=== PATIENT | male | born 1955 | race Caucasian/White ===

== ENCOUNTER 2016-05-23 07:04 | Inpatient (IN) | payer OTHER, MEDICARE ==
[~2016-05-23] VITALS: Ht 185.4 cm; Wt 94.5 kg
[~2016-05-23 07:04] MED LIST: CHOL100043 PO; HYOS0.1218 SL; LIT450 PO; LORA-303 PO; LORA1TAB PO; OMEG1CAP2 PO; PANT40TA2 PO; Therapeutic Multivit/Minerals PO
[2016-05-23 07:10] VITALS: BP 190/116; PULSE 90; RESP 18; O2SAT 98
[2016-05-23 08:50] LABS: BASOPHILS % (AUTO) 0.1 % (0-3); EOSINOPHILS % (AUTO) 0.3 % (0-5); MONOCYTES % (AUTO) 6.9 % (4-12); Mean Corpuscular Hemoglobin 30.8 pg (27.0-35.0); Mean Corpuscular Volume 86.5 fL (81-100); NEUTROPHILS % (AUTO) 72.9 % (40-74); Platelet Count 187 bil/L (150-400)
[2016-05-23 09:48] VITALS: BP 174/97; PULSE 79; RESP 16; O2SAT 97
--- NOTE | 2016-05-23 11:39 | ED.REPORT ---
HPI-Psychiatric Illness Date of Service May 23, 2016 ED Provider: Brenda Coles MD 60yoM with PMH remarkable for Bipolar Disorder type 1 presents with two weeks of decreasing sleep secondary to Harvoni started by Dr. Quintero on April 27, 2016. The patient states that he has not been feeling well, and his general mental health seems to be declining due to lack of sleep. The patient also states that he has run out of his [place] and his psychiatrist Brennen Rainey M.D. would not restart this medication without evaluating the patient first. The patient has been on several medications for his bipolar condition including Risperidone started during a hospitalization in May 2015 at [facility], as well as Quietipine and lorazepam. The patient states that he has thoughts of harming himself with several modalities including cutting his wrists which he says were not serious as well as medication overdose which he states he has contemplated more seriously. He denies visual or auditory hallucinations. He denies wanting to hurt other people. He has a stressor at home with his son actively using heroin but reportedly being treated for his addiction as well. Nursing Notes Stated Complaint: SUICIDAL IDEATIONS/ABDOMINAL PAIN/HEADACHE Chief Complaint: Psychiatric Complaint Allergies: Coded Allergies: No Known Allergies (Unverified , 12/12/15) Scheduled ([Therapeutic Multivit/Minerals]) 1 TABLET TABLET 1 TABLET PO DAILY Cholecalciferol (Vitamin D3) (Vitamin D) 1,000 Unit Tablet 1,000 UNIT PO DAILY Ledipasvir/Sofosbuvir (Harvoni 90-400 mg Tablet) 1 Each Tablet 1 EACH PO DAILY [place] Carbonate ([place] Carbonate XR) 450 Mg Tablet.er 900 MG PO DAILY [place]-3 Acid Ethyl Esters (Lovaza) 1 Gm Capsule 1 GM PO DAILY Pantoprazole DR (Protonix) 40 Mg Tablet 40 MG PO DAILY Scheduled PRN Hyoscyamine SL (Hyoscyamine SL) 0.125 Mg Subl 0.125 MG SL Q4H PRN PRN For Moderate Pain Lorazepam (Ativan) 1 Mg Tablet 1 MG PO Q6 PRN PRN mod-severe anxiety/agitation Lorazepam (Lorazepam) 1 Mg Tablet 3 MG PO HS PRN PRN For Insomnia General Time Seen by MD: 07:45 Chief Complaint Suicidal ideation, Other (insomnia with risk of landon/hypomania) Hx Obtained From: Patient, Spouse Arrived By: Walk-in Onset Occurred: More than a week ago... (3 weeks) Context of Onset: Problem with child, Other (initiation of new medication Harvoni) Symptom Duration: Since onset Progression Since Onset: Gradually worsening Location: : Abdomen: Head: Neck Quality: Dull Radiation: Does not radiate Severity: Current: Mild Immunizations: Unknown Recent Healthcare: No recent doctor visit, No recent hospitalization Similar Sx Previous: Yes Risk-Psychiatric Illness Suicide Risk Stratification Suicide Risk Factors - Adult: : Prior psych admission: Substance abuse ( history of EtOH) RF Statements: Risk factors reviewed Past Medical History Past Medical History Notes: Last admit was for mild lithium toxicity in November 06 Past Medical History Bipolar, most recent care center admit 05/2015 h/o prior lithum OD h/o chronic abdominal pain (last ED w/u including neg Abd CT in 2012) GERD Negative Nuclear Cardiac Stress Test 2011 Past Surgical History Cataract Surgery Smoking History Current Every Day Smoker Social History Alcohol Use: "Social" Drug Use: THC Other Social History: Ambulatory Status Independent Review of Systems GI: Reports: Abdominal pain, Constipation, Nausea, Denies: Diarrhea, Vomiting Psychiatric: Reports: Depression, Insomnia, Suicidal ideation, Denies: Delusional, Hallucinations, auditory, Hallucinations, visual, Homicidal ideation Complete sys rev & neg: except as marked. Physical Exam Initial Vital Signs Vital Signs (First) Date Time Temp Pulse Resp B/P Pulse Ox O2 Delivery O2 Flow Rate FiO2 05/23/16 07:10 36.8 90 18 190/116 98 05/23/16 09:48 Room Air Initial VS: Reviewed Head / Eyes: Atraumatic, Normocephalic, PERRL ENT: Mucous membranes moist, Conjunctiva normal Neck: Supple, Non-tender, Full range of motion Respiratory: Breath sounds normal, Clear to auscultation, No respiratory distress Cardiovascular: Regular rate & rhythm, Heart sounds normal, Intact distal pulses Abdomen / GI: Soft, Non-tender, No guarding, No rebound, No distention Back: No CVA tenderness Lymphatic: No lymphadenopathy Extremities: Vascular intact, Neuro intact, No swelling, No tenderness Skin: Warm, Dry, No cyanosis Psychiatric: No hallucinations, Thought content NL Abnormal Mood/Affect: Positive: Anxious, Depressed, Pressured speech (very mild ), Negative: Labile Abnormal Thinking / Perception: Positive: Insight abnormal (believes his only issue to lack of sleep and not landon/hypomania), Suicidal, with plan (patient stated he has thought about overdosing on medication), Negative: Delusions - paranoid, Flight of ideas, Hallucinations, auditory, Hallucinations, tactile, Hallucinations, visual, Homicidal, no plan Mild scleral icterus noted, however without sublingual juandice noted ENT: Airway patent, Mucous membranes moist, Pharynx NL, No facial swelling Dental / Gums: Positive: Dentition poor (bottom and top dentures) Interpretation & Diagnostics Lab Results Interpretation Result Diagram: 05/23/16 0837 05/23/16 0837 Test 05/23/16 08:20 05/23/16 08:37 Hold Urine Received (Received) White Blood Count 8.8th/mm3 (3.8-10.1) Red Blood Count 5.39mil/mm3 (4.40-5.80) Hemoglobin 16.6g/dL (13.8-17.2) Hematocrit 46.6% (41.0-50.0) Mean Corpuscular Volume 86.5fL (81-100) Mean Corpuscular Hemoglobin 30.8pg (27.0-35.0) Mean Corpuscular Hemoglobin Concent 35.6% (32.0-37.0) Red Cell Distribution Width 12.7% (12.3-15.4) Platelet Count 187bil/L (150-400) Neutrophils (%) (Auto) 72.9% (40-74) Lymphocytes (%) (Auto) 19.5% (14-46) Monocytes (%) (Auto) 6.9% (4-12) Eosinophils (%) (Auto) 0.3% (0-5) Basophils (%) (Auto) 0.1% (0-3) Sodium Level 139mEq/L (134-144) Potassium Level 3.7mEq/L (3.5-5.2) Chloride Level 101mEq/L (97-108) Carbon Dioxide Level 24mmol/L (18-29) Blood Urea Nitrogen 9mg/dL (6-24) Creatinine 0.76mg/dL (0.76-1.27) Estimat Glomerular Filtration Rate 112mL/min (>59) Glucose Level 132mg/dL (60-99) Calcium Level 9.6mg/dL (8.5-10.1) Magnesium Level 2.0mg/dL (1.6-2.6) Total Bilirubin 0.4mg/dL (0.0-1.2) Aspartate Amino Transf (AST/SGOT) 22U/L (0-50) Alanine Aminotransferase (ALT/SGPT) 23U/L (0-44) Alkaline Phosphatase 71U/L (25-160) Total Protein 8.3g/dL (6.4-8.4) Albumin 4.6g/dL (3.4-5.0) Lipase 35U/L (13-60) Hold [place] Top Tube Received (Received) Re-Eval/Medical Decision Med Decision/Clinical Course Patient would like to be considered for voluntary hospitalization into the Mental Health wing of [facility]. Social Work has been consulted. Source of Hx: Old records, Family Re-Evaluation/Progress : Time of Eval: 12:20 Re-Evaluation/Progress Note: Consult with Dr. Flores (Mental Health). Case discussed and accepts admission. Counseled Regarding: Diagnosis, Lab results, Need for admission Discharge & Departure Impression: Primary Impression: Bipolar disorder, current episode hypomanic Additional Impressions: Insomnia Insomnia type: unspecified Qualified Code: G47.00 - Insomnia, unspecified Hepatitis C Disposition: ADMITTED TO HOSPITAL Discharge Condition All VS Reviewed: Yes Condition: Stable Referrals: Deanna Galdamez DO (PCP) Anay Attestation Portion of this note were transcribed by Rosa M Garcia. I, Dr. Coles, personally performed the history, physical exam, and medical decision-making: I reviewed and confirmed the accuracy for the information in the transcribed note. Signed by: anay Novak, 05/23/16 1300 Attending Statement Patient seen and evaluated. Hypomania/landon with improvement weeks of starting harvoni treatment for hepatitis C Willing to try meds but wants to make sure they are going to work. Requests inpt voluntary eval for acute medication adjustment in light of newly started Harvoni. discussed with Dr Flores. Admit to care center. copies to: Deanna Galdamez NICHOLAS K DO May 23, 2016 09:20 ROSA M GARCIA May 23, 2016 12:24 Brenda Coles MD May 23, 2016 13:24
[2016-05-23] MEDS ORDERED: Benzocaine-Menthol Lozenge 2/Pkg MT PRN (13:20)
[2016-05-23] MEDS ORDERED: Magnesium Hydroxide 10 mL Oral Concentration PO PRN (13:20)
[2016-05-23] MEDS ORDERED: Alum-Mag Hydrox-Simeth 30 mL Suspension PO PRN (13:20)
[2016-05-23 13:49] VITALS: BP 174/97; PULSE 79; RESP 16; O2SAT 97
[2016-05-23] MEDS ORDERED: LORazepam 1 mg Tablet PO PRN (16:25)
--- NOTE | 2016-05-23 18:01 | NUR ---
[facility] Day Shift Pt admitted to the unit at approx 13:33. Pt completed the admission process without incident. Pt affect appears euthymic, somewhat manic/restless throughout the shift. Pt spends most of the shift resting in his room or obtaining snacks/meals from the dining room. Pt is appropriate with staff and peers when active on the unit, but is not overly social. Pt has not attended group activities throughout the shift. Pt attended dinner and ate approx 100% of meal.
[2016-05-23 18:08] VITALS: BP 117/84; PULSE 106; RESP 16
--- NOTE | 2016-05-23 18:21 | NUR ---
Admitting Note Pt is a 60 y/o White male with a history of bipolar disorder, brought to the ED due to insomnia x 3 days. Pt is Hep C positive and began taking the drug Harvoni which he believes is the cause of his insomnia. He reports passive and fleeting SI. He attributes this to his deteriorating health, overwhelming concern about side effects of this medication and complicated by lack of sleep. Pt denies current SI plan or intent, denies A/V H, no sign of psychosis or landon observed. Pt reported he has been off his lithium x 1 week after running out and being unable to get the prescription refilled. Pt has been sober from alcohol since 03/29/16 and denies substance use. Pt oriented to unit, provided a meal and is resting comfortably. Home medication Darleneoni sent to pharmacy for verification before being used as a pt home med on the unit.
[2016-05-23] MEDS ORDERED: LEDI1TAB PO (18:52)
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
--- NOTE | 2016-05-24 01:09 | NUR ---
Nursing Note [id number] Pt isolating to room most of shift. Pt denied anxiety, depression and SI stating "I am here cause I haven't slept in 3 weeks from the Harvoni. Pt also c/o constant stomach pain from the Harvoni. Pt was compliant with with meds and requested ativan and ambien for sleep. Pt given 1st 5mg of ambien which was not affective and second 5mg was administered. pt was cooperative and polite and appears to be manic AEB rapid speech. Q15 min safety checks per protocol, [facility] sleep, safety, behavior.
[2016-05-24] MEDS: Pantoprazole 40 mg ER24 Tablet PO SCH (08:14)
[2016-05-24] MEDS: Omega-3 Fatty Acids 1,000 mg Capsule PO SCH (08:14)
[2016-05-24] MEDS: HARVONI PO SCH (08:15)
[2016-05-24 09:00] VITALS: BP 120/80; PULSE 93; RESP 16
--- NOTE | 2016-05-24 17:30 | NUR ---
Nursing Note Alexei Romero Nursing Notes S: I wanted to leave but I am going to be stuck with the bill if I do. O: Pt wanted to leave AMA today, after talking to patient and after his talked to him, he decided to stay until tomorrow so he wont have to pay the thousands of dollars for a hospital bill. Patient has been participating with group. Pt is very active with staff and patients. A: Pt appears well kept today, flat affect. P: Monitor for safety and response to treatment. Follow plan of care. for safety/response to treatment. Follow PRNs Used Nicorette lozenges PRN X1 today with good effect
--- NOTE | 2016-05-24 19:54 | NUR ---
Observations 0900 to 2130 Pt affect and mood was labile, flat, bright when engaged and content. Pt speech and eye contact was good. Pt declined to attended group and unit activities. Pt sat in TV area and read his book. Pt was social with staff and peers when approached. Pt attended meals in D.R. and ate about 100% of breakfast, 100% of lunch and 100% of dinner. Pt maintained behavior for the shift. Pt was polite, pleasant and cooperative. Pt made several phone calls. Pt was observed every 15 minutes throughout the shift as ordered.
--- NOTE | 2016-05-24 20:38 | PCM.PNPSY ---
Subjective Date of Service May 24, 2016 Subjective Patient initially requesting discharge reporting that he had "played a trick" and was not suicidal, but wanted medication. The patient was rapid and pressured and difficult to interrupt. This was explained to the patient and for that reason would be an AMA discharge with follow-up with outpatient provider. Patient spoke with his who had him agree to stay in the hospital until more stable. No side effects, reports that he is tolerating restart of medication. Sleep: 8 hours Appetite: "okay" Suicidal and homicidal ideation: denies Auditory hallucinations: denies Visual hallucinations: denies Other Psychotic Symptoms: rapid, pressured speech Anxiety: occasional panic attack Depression: 0/10 Current Medications Current Medications Hydroxyzine Pamoate 50 mg Q4 PRN PO Last administered on 05/24/16 15:11; Admin Dose 50 MG; Start 05/24/16 at 09:15 [place] Carbonate 600 mg HS ONCE PO Last administered on 05/23/16 21:08; Admin Dose 600 MG; Start 05/23/16 at 21:00; Stop 05/23/16 at 21:01; Status DC [place] Carbonate 900 mg DAILY PO Last administered on 05/23/16 10:13; Admin Dose 900 MG; Start 05/23/16 at 09:25; Stop 05/23/16 at 16:23; Status DC Lorazepam 1 mg Q4H PRN PO Last administered on 05/24/16 00:20; Admin Dose 1 MG ; Start 05/23/16 at 16:25; Stop 05/24/16 at 09:15; Status DC Multivitamins/ Minerals Therapeutic 1 tablet DAILY PO Last administered on 08:14; Admin Dose 1 TABLET; Start 05/24/16 at 08:30 Nicotine 1 patch DAILY TOPICAL Last administered on 05/24/16 14:36; Admin Dose 1 PATCH; Start 05/24/16 at 13:12 Nicotine Polacrilex 2 mg Q4H PRN BUCCAL Last administered on 05/24/16 14:36; Admin Dose 2 MG; Start 05/24/16 at 13:15 Olanzapine 10 mg DAILY PO Last administered on 05/23/16 10:11; Admin Dose 10 MG ; Start 05/23/16 at 09:25; Stop 05/23/16 at 16:23; Status DC Pantoprazole 40 mg 0630 PO Last administered on 05/24/16 08:14; Admin Dose 40 MG ; Start 05/24/16 at 06:30 Patient Own Medication 1 ea DAILY PO Last administered on 05/24/16 08:15; Admin Dose 1 EA; Start 05/24/16 at 08:30 Zolpidem Tartrate Start with 5 mg and may rep... HS PRN PO Last administered on 05/24/16 00:20; Admin Dose 5 MG; Start 05/23/16 at 16:25 Mental Status Exam Appearance: Neat/well groomed Attitude: Pleasant, Cooperative Behavior: Overtly anxious (mild) Affect: Well Modulated/Appropriate Mood: Euphoric Thought Process/Associations: Logical/Sequential Speech Production: Abundant Speech Rate: Pressured Speech Articulation: Normal Thought Content: Perseveration Danger to Self/Suicidal Ideati: None Danger to Others: None Hallucinations: Auditory (Denies), Visual (Denies) Consciousness: Alert Orientation: Person, Place, Date, Situation Memory: Grossly Intact Estimate Intellectual Function: Average Basis for IQ estimate: Awareness current events, Word use/vocabulary, Educational history, Employment history Attention/Concentration & Cogn: Impaired Insight: Limited Judgement: Limited Result Diagram: 05/23/1683605/23/16836 Mental Health Plan The patient is a 60-year-old male with a long history of bipolar disorder who recently stopped taking lithium as he had not followed up with his outpatient provider and the prescription had . The patient is also experiencing insomnia and worsening mood exacerbated by the recent start of his hepatitis C medication, Harvoni. After discussion with his outpatient provider, he will be restarted on Eskalith 900 mg at bedtime. He will be provided hydroxyzine for anxiety and if this does not relieve anxiety he may be given lorazepam. He will be prescribed olanzapine for mood at bedtime and is he does not sleep well and have zolpidem for insomnia. The patient is somewhat rapid and pressured, consistent with hypomania. Poor insight, initially requesting to leave but agreed to stay, unclear whether he will stay long enough to stabilize. [place] AXIS I: Bipolar disorder hypomanic without psychotic features Alcohol dependence, in partial remission in a controlled environment AXIS II: Deferred AXIS III: See past medical history AXIS IV: Moderate to severe with unemployment and family stressors. AXIS V: GAF= 35 Medications Eskalith 900 mg by mouth nightly Olanzapine 5 mg by mouth nightly Hydroxyzine 50 mg by mouth every 4 hours when necessary anxiety Lorazepam 1 mg by mouth every 4 hours when necessary anxiety if the hydroxyzine not effective Zolpidem 5-10 mg by mouth nightly when necessary insomnia Treatments 1. The patient is admitted to the inpatient unit and will be provided a safe and secure environment. 2. The patient is denying current active suicidality and is not in need of a one-to-one at this time. He is agreeing to notify us should he have any acute suicidal or homicidal thoughts. 3. The patient is encouraged to participate with group and milieu activities. 4. The patient will be seen by the treatment team on a daily basis to assess symptoms, side effects and response to treatment. 5. The patient will be restarted on lithium and switched to Eskalith 900 mg at bedtime. 6. The patient will be started on olanzapine 5 mg at bedtime for bipolar. 7. Hydroxyzine 50 mg by mouth every 4 hours when necessary anxiety with lorazepam back up. 8. We will avoid using acetaminophen or ibuprofen given his hepatic and lithium respectively. 9. We will use hyoscyamine for pain. 10. Anticipated length of stay 3-5 days. Eric Flores MD May 24, 2016 20:38
--- NOTE | 2016-05-24 21:26 | NUR ---
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
--- NOTE | 2016-05-25 04:48 | NUR ---
Observations from [id number] Pt spent the evening watching tv with peers. Pt is pleasant with staff when making a request and seems to be appropriate with peers. Pt appeared asleep at 2145 and has appeared to remain asleep throughout the night. Pt has been monitored every 15 minutes as directed. Addendum: 05/25/16 at 0451 by [facility] Pt woke up briefly at 0500
--- NOTE | 2016-05-25 05:18 | NUR ---
nursing, nights, 11-7 s/o- has appeared to sleep after 2144. up briefly at 0500 to check the time. assessed q 15 minutes. a- no apparent distress. p- monitor behavior/emotional state, quality, times and amount of sleep, use and effect of medication. layla
[2016-05-25] MEDS: Pantoprazole 40 mg ER24 Tablet PO SCH (07:53)
[2016-05-25] MEDS: Omega-3 Fatty Acids 1,000 mg Capsule PO SCH (07:53)
[2016-05-25] MEDS: HARVONI PO SCH (07:54)
[2016-05-25 08:45] VITALS: BP 136/86; PULSE 81; RESP 16
--- NOTE | 2016-05-25 13:53 | NUR ---
Nursing note [id number] S: Just making the most out of a slow day, not sleeping well at night, thats the reason I came in here is to get that medication fixed so I can sleep at night O: Pt is quiet and guarded. Clear and linear speech, eyes tend to wander off when talking to him . A: Pt appears well kept today, flat affect. P: Monitor for safety and response to treatment. Follow plan of care. for safety/response to treatment.
--- NOTE | 2016-05-25 17:38 | NUR ---
[facility] Day Shift Pt maintained behavioral control throughout the shift. Pt affect appears mostly euthymic, occasionally flat. Pt spends most of the shift resting in his room, reading/watching TV in the dining room, and lightly interacting with staff. Pt is appropriate with staff and peers when active on the unit, but is not overly social with peers. Pt attended community meeting in the AM and lightly participated in group activities. Pt attended all meals and ate approx 100% of all meals.
--- NOTE | 2016-05-25 18:08 | PCM.PNPSY ---
Subjective Date of Service May 25, 2016 Subjective The patient reported that he had a series of strange dreams last night and had not realized that he had left his NicoDerm patch on. The patient reports that he still feels that the days going very slowly. The patient appeared energetic was somewhat pressured speech but did not appear frankly manic. He denied racing thoughts the patient requested blood work that would be needed by Dr. Quintero be drawn on Saturday as well. But Dr. Quintero was unable to be reached. The patient reported that the 2 Ambien doses did not work as well and would like to take a larger dose at bedtime if needed. We also discussed using olanzapine at bedtime and patient was agreeable to plan with increase to 10 mg necessary. No side effects, reports that he is tolerating restart of medication. Sleep: 7.75 hours, "but it felt like 4 or 5." Appetite: "Down a bit." Suicidal and homicidal ideation: denies Auditory hallucinations: denies Visual hallucinations: denies Other Psychotic Symptoms: rapid, pressured speech Anxiety: "Low"/10 Depression: 0/10 Current Medications Current Medications Hydroxyzine Pamoate 50 mg Q4 PRN PO Last administered on 05/24/16 21:26; Admin Dose 50 MG; Start 05/24/16 at 09:15 [place] Carbonate 600 mg HS ONCE PO Last administered on 05/23/16 21:08; Admin Dose 600 MG; Start 05/23/16 at 21:00; Stop 05/23/16 at 21:01; Status DC [place] Carbonate 900 mg HS PO Last administered on 05/24/16 21:25; Admin Dose 900 MG; Start 05/24/16 at 21:00 Multivitamins/ Minerals Therapeutic 1 tablet DAILY PO Last administered on 07:53; Admin Dose 1 TABLET; Start 05/24/16 at 08:30 Nicotine 1 patch DAILY TOPICAL Last administered on 05/25/16 07:53; Admin Dose 1 PATCH; Start 05/24/16 at 13:12 Nicotine Polacrilex 2 mg Q4H PRN BUCCAL Last administered on 05/24/16 14:36; Admin Dose 2 MG; Start 05/24/16 at 13:15 Pantoprazole 40 mg 0630 PO Last administered on 05/25/16 07:53; Admin Dose 40 MG; Start 05/24/16 at 06:30 Patient Own Medication 1 ea DAILY PO Last administered on 05/25/16t 07:54; Admin Dose 1 EA; Start 05/24/16 at 08:30 Mental Status Exam Appearance: Neat/well groomed Attitude: Pleasant, Cooperative Behavior: Overtly anxious (mild) Affect: Well Modulated/Appropriate Mood: Euphoric Thought Process/Associations: Logical/Sequential Speech Production: Abundant Speech Rate: Pressured Speech Articulation: Normal Thought Content: Perseveration Danger to Self/Suicidal Ideati: None Danger to Others: None Hallucinations: Auditory (Denies), Visual (Denies) Consciousness: Alert Orientation: Person, Place, Date, Situation Memory: Grossly Intact Estimate Intellectual Function: Average Basis for IQ estimate: Awareness current events, Word use/vocabulary, Educational history, Employment history Attention/Concentration & Cogn: Impaired Insight: Limited Judgement: Limited Result Diagram: 05/23/1637 05/23/1637 Mental Health Plan The patient is a 60-year-old male with a long history of bipolar disorder who recently stopped taking lithium as he had not followed up with his outpatient provider and the prescription had . The patient is also experiencing insomnia and worsening mood exacerbated by the recent start of his hepatitis C medication, Harvoni. After discussion with his outpatient provider, he will be restarted on Eskalith 900 mg at bedtime. He will be provided hydroxyzine for anxiety and if this does not relieve anxiety he may be given lorazepam. He will be prescribed olanzapine for mood at bedtime and if he does not sleep well and have zolpidem for insomnia. The patient is somewhat rapid and pressured, consistent with hypomania. The patient continues with poor insight but is agreeable to staying until his lithium level on Saturday. The patient will hopefully have stabilized sufficiently for discharge. [place] AXIS I: Bipolar disorder hypomanic without psychotic features Alcohol dependence, in partial remission in a controlled environment AXIS II: Deferred AXIS III: See past medical history AXIS IV: Moderate to severe with unemployment and family stressors. AXIS V: GAF= 35 Medications Eskalith 900 mg by mouth nightly Olanzapine 5 mg by mouth nightly Hydroxyzine 50 mg by mouth every 4 hours when necessary anxiety Zolpidem 5-10 mg by mouth nightly when necessary insomnia Treatments 1. The patient is admitted to the inpatient unit and will be provided a safe and secure environment. 2. The patient is denying current active suicidality and is not in need of a one-to-one at this time. He is agreeing to notify us should he have any acute suicidal or homicidal thoughts. 3. The patient is encouraged to participate with group and milieu activities. 4. The patient will be seen by the treatment team on a daily basis to assess symptoms, side effects and response to treatment. 5. The patient will be restarted on lithium and switched to Eskalith 900 mg at bedtime. 6. The patient will be started on olanzapine 5 mg at bedtime for bipolar. 7. Hydroxyzine 50 mg by mouth every 4 hours when necessary anxiety with lorazepam back up. 8. We will avoid using acetaminophen or ibuprofen given his hepatic and lithium respectively. 9. We will use hyoscyamine for pain. 10. Anticipated length of stay 3-5 days. Eric Flores MD May 25, 2016 18:08
--- NOTE | 2016-05-26 04:53 | NUR ---
Nursing Noc Pt able to sleep this shift and denies nightmares or dreams. Up shortly for repeat PRN sleep medication and then noted to sleep through the night by Q15 minute safety checks. Pt firs noted to be asleep at 2114. Continuing to monitor sleep times, mood, behavior, emotional state and medications. CP
[2016-05-26] MEDS: Omega-3 Fatty Acids 1,000 mg Capsule PO SCH (07:51)
[2016-05-26] MEDS: HARVONI PO SCH (07:52)
[2016-05-26] MEDS: Pantoprazole 40 mg ER24 Tablet PO SCH (07:52)
--- NOTE | 2016-05-26 13:09 | NUR ---
Nursing Day Shift- S/O- Pt. was awake for breakfast. He appeared relaxed and at ease in the DR area most of the morning. He eat well at breakfast and lunch. Pt. was overheard by staff becoming agitated with a peer who was speaking in a loud and rambling manner. staff was required to step between the 2 males. The interaction was brief, and no physical contact occurred. Pt. reported he feels he will be ready for discharge tomorrow. Pt. denies suicidal thoughts. A- Appears relaxed on the unit. Quick to agitate and verbally threaten a male peer. P- Planned discharge for tomorrow.
--- NOTE | 2016-05-26 15:00 | NUR ---
Brine Tank Operator/Counselor: S: "I think it's going to be another long day." O: Patient slept 8 hours last night as per staff. He denies S/I and H/I. He denies auditory and visual hallucinations. Depression is 0/10 and anxiety is "low." A: Patient is cooperative, tangential, anxious, paranoid, poor insight, poor judgment. P: Follow care plan, coordinate with out-patient providers.
[2016-05-26 16:41] VITALS: BP 124/89; PULSE 90; RESP 16
--- NOTE | 2016-05-26 17:30 | NUR ---
Observations 0700 to 1900 Pt maintained behavioral control throughout the shift. Pt was in bed briefly in morning but otherwise spent most of day on unit. Pt seems to be mostly focused on getting better sleep. "I exaggerated my suicidality to get in here to work on my sleep." Pt spent time on patio in afternoon and watched TV. Pt ate 100% of meals and was observed every 15 minutes as ordered.
--- NOTE | 2016-05-26 21:16 | PCM.PNPSY ---
Subjective Date of Service May 26, 2016 Subjective The patient reports that "time is still going slowly." Patient reports that he would like additional labwork related to [place], but informed patient unable to reach outpatient roll winder on Saturday. Awaiting information from patient's spouse. No side effect complaints. Sleep: 8 hours, Appetite: good Suicidal and homicidal ideation: denies Auditory hallucinations: denies Visual hallucinations: denies Other Psychotic Symptoms: denies Anxiety: "low" Depression: "low" Current Medications Current Medications [place] Carbonate 900 mg HS PO Last administered on 05/25/16 20:21; Admin Dose 900 MG; Start 05/24/16 at 21:00 Nicotine 1 patch DAILY TOPICAL Last administered on 05/26/16 07:52; Admin Dose 1 PATCH; Start 05/24/16 at 13:12 Nicotine Polacrilex 2 mg Q4H PRN BUCCAL Last administered on 05/24/16 14:36; Admin Dose 2 MG; Start 05/24/16 at 13:15 Olanzapine 5 mg HS PO Last administered on 05/25/16 20:21; Admin Dose 5 MG; Start 05/25/16 at 21:00 Zolpidem Tartrate 10 mg HS PRN PO Last administered on 05/25/16 20:37; Admin Dose 10 MG; Start 05/25/16 at 20:30; Stop 05/26/16 at 10:58; Status DC Mental Status Exam Appearance: Neat/well groomed Attitude: Pleasant, Cooperative Behavior: Overtly anxious (mild) Affect: Well Modulated/Appropriate Mood: Euphoric (mild) Thought Process/Associations: Logical/Sequential Speech Production: Normal Speech Rate: Pressured (mild) Speech Articulation: Normal Thought Content: Perseveration Danger to Self/Suicidal Ideati: None Danger to Others: None Hallucinations: Auditory (Denies), Visual (Denies) Consciousness: Alert Orientation: Person, Place, Date, Situation Memory: Grossly Intact Estimate Intellectual Function: Average Basis for IQ estimate: Awareness current events, Word use/vocabulary, Educational history, Employment history Attention/Concentration & Cogn: Impaired Insight: Limited Judgement: Limited Result Diagram: 05/23/16 0837 05/23/16 0837 Mental Health Plan The patient is a 60-year-old male with a long history of bipolar disorder who recently stopped taking lithium as he had not followed up with his outpatient provider and the prescription had . The patient is also experiencing insomnia and worsening mood exacerbated by the recent start of his hepatitis C medication, Harvoni. After discussion with his outpatient provider, he will be restarted on Eskalith 900 mg at bedtime. He will be provided hydroxyzine for anxiety and if this does not relieve anxiety he may be given lorazepam. He will be prescribed olanzapine for mood at bedtime and if he does not sleep well and have zolpidem for insomnia. The patient is less rapid and pressured. The patient continues with poor insight but is agreeable to staying until his lithium level on Saturday. [place] AXIS I: Bipolar disorder hypomanic Alcohol dependence, in partial remission in a controlled environment AXIS II: Deferred AXIS III: See past medical history AXIS IV: Moderate to severe with unemployment and family stressors. AXIS V: GAF= 35 Medications Eskalith 900 mg by mouth nightly Olanzapine 5 mg by mouth nightly Hydroxyzine 50 mg by mouth every 4 hours when necessary anxiety Zolpidem 5-10 mg by mouth nightly when necessary insomnia Treatments 1. The patient is admitted to the inpatient unit and will be provided a safe and secure environment. 2. The patient is denying current active suicidality and is not in need of a one-to-one at this time. He is agreeing to notify us should he have any acute suicidal or homicidal thoughts. 3. The patient is encouraged to participate with group and milieu activities. 4. The patient will be seen by the treatment team on a daily basis to assess symptoms, side effects and response to treatment. 5. The patient will be restarted on lithium and switched to Eskalith 900 mg at bedtime. 6. The patient will be started on olanzapine 5 mg at bedtime for bipolar. 7. Hydroxyzine 50 mg by mouth every 4 hours when necessary anxiety with lorazepam back up. 8. We will avoid using acetaminophen or ibuprofen given his hepatic and lithium respectively. 9. We will use hyoscyamine for pain. 10. Anticipated length of stay 3-5 days. Eric Flores MD May 26, 2016 11:13
--- NOTE | 2016-05-26 21:58 | NUR ---
NURSING NOTE [id number] Mood= "fine, tired, the same" Affect= neutral Behavior= visible off and on in the dining room, minimal socialization w/peers, watching TV off and on. Med compliant. Thought processes= pt. expressed readiness for discharge tomorrow then stated: "It's not like I got any help here anyways". He continued; "I lied to get in here; I told them downstairs I was suicidal when I wasn't. I just needed help for sleep but it hasn't gotten any better." Pt. denies any disturbed thought processes.
--- NOTE | 2016-05-27 01:24 | NUR ---
Observations 1900 to 0700 Pt was in his room when my shift started and has remained the there the entire night. Pt first appeared asleep at 21:00 and was observed every 15 minutes through the night as directed.
--- NOTE | 2016-05-27 06:06 | NUR ---
Adequate sleep through the night with no noted distress. He awoke briefly x 1 and was able to return back to sleep. He slept from [id number] then from [id number]. Total sleep 8 hours. This morning pt is having coffee and watching the morning news. He is polite, pleasant and appropriate upon interaction.
[2016-05-27] MEDS: HARVONI PO SCH (08:23)
[2016-05-27] MEDS: Pantoprazole 40 mg ER24 Tablet PO SCH (08:23)
[2016-05-27] MEDS: Omega-3 Fatty Acids 1,000 mg Capsule PO SCH (08:23)
[2016-05-27 10:02] LABS: BASOPHILS % (AUTO) 0.1 % (0-3); EOSINOPHILS % (AUTO) 1.6 % (0-5); MONOCYTES % (AUTO) 7.4 % (4-12); Mean Corpuscular Hemoglobin 30.6 pg (27.0-35.0); Mean Corpuscular Volume 87.9 fL (81-100); NEUTROPHILS % (AUTO) 51.9 % (40-74); Platelet Count 179 bil/L (150-400)
--- NOTE | 2016-05-27 11:23 | NUR ---
Nursing Discharge- Planned discharge to home today. Pt. had slept 8 plus hours per shift report. He denied thoughts of self harm, but voiced ongoing concerns about his sleep quality. He expressed an understanding of his medication and follow up plans. Pt's prescriptions were faxed to [facility] as he had requested. Pt's will be transporting him home. Addendum: 05/27/16 at 1208 by YAIMA GALVIN RN Pt. discharged as planned at 1205 today.
--- NOTE | 2016-05-27 11:24 | PCM.DIMED ---
Discharge Instructions Date of Service May 27, 2016 Dates of Hospitalization May 23, 2016 at 13:15 Discharge Diagnosis Discharge Diagnosis AXIS I: Bipolar disorder hypomanic Alcohol dependence, in partial remission in a controlled environment AXIS II: Deferred AXIS III: Hepatitis C AXIS IV: Moderate to severe with unemployment and family stressors. AXIS V: GAF= 50 Test Results Laboratory Tests 72 Hours Test 05/27/16 09:30 White Blood Count 8.3th/mm3 (3.8-10.1) Red Blood Count 5.39mil/mm3 (4.40-5.80) Hemoglobin 16.5g/dL (13.8-17.2) Hematocrit 47.4% (41.0-50.0) Mean Corpuscular Volume 87.9fL (81-100) Mean Corpuscular Hemoglobin 30.6pg (27.0-35.0) Mean Corpuscular Hemoglobin Concent 34.8% (32.0-37.0) Red Cell Distribution Width 12.8% (12.3-15.4) Platelet Count 179bil/L (150-400) Neutrophils (%) (Auto) 51.9% (40-74) Lymphocytes (%) (Auto) 38.8% (14-46) Monocytes (%) (Auto) 7.4% (4-12) Eosinophils (%) (Auto) 1.6% (0-5) Basophils (%) (Auto) 0.1% (0-3) Sodium Level 133mEq/L (134-144) Potassium Level 4.0mEq/L (3.5-5.2) Chloride Level 97mEq/L (97-108) Carbon Dioxide Level 22mmol/L (18-29) Blood Urea Nitrogen 18mg/dL (6-24) Creatinine 0.79mg/dL (0.76-1.27) Estimat Glomerular Filtration Rate 107mL/min (>59) Glucose Level 195mg/dL (60-99) Calcium Level 9.6mg/dL (8.5-10.1) Total Bilirubin 0.5mg/dL (0.0-1.2) Aspartate Amino Transf (AST/SGOT) 27U/L (0-50) Alanine Aminotransferase (ALT/SGPT) 25U/L (0-44) Alkaline Phosphatase 58U/L (25-160) Total Protein 7.4g/dL (6.4-8.4) Albumin 4.7g/dL (3.4-5.0) [place] Level 0.7mEq/L (0.5-1.5) Patient Instructions Should you have any thoughts of harming yourself or others, please call the crisis line, your provider, 911, or go to the nearest Emergency Department. Do not change or discontinue your medications without discussing with your provider. You have been given a prescription for 14 days supply of your medication Your hepatitis C serology labs were pending at the time of discharge. Please have your provider contact the lab for results. Follow-up plan Psychiatric follow-up Dr. Brennen Wu MD on 06/06/16 at 12:15pm [address] [place] [id number] Eric Flores MD May 27, 2016 11:24
[2016-05-27] MEDS ORDERED: OLAN5TAB PO (11:32)
[2016-05-27] MEDS ORDERED: HYDR50CA3 PO (11:32)
[2016-05-27] MEDS ORDERED: LIT450 PO (11:32)
[2016-05-27] MEDS ORDERED: ZLP5T PO (11:32)
--- NOTE | 2016-05-27 18:43 | PCM.DC.MED ---
Discharge Summary Date of Service May 27, 2016 Dates of Hospitalization Date of Hospital Admission May 23, 2016 at 13:15 Date of Discharge: May 27, 2016 Providers: Admitting Physician: Eric Sullivan MD Primary Care Physician: Deanna Galdamez DO Attending Physician: Eric Sullivan MD Diagnosis at Time of Discharge Diagnosis at Time of Discharge AXIS I: Bipolar disorder hypomanic Alcohol dependence, in partial remission in a controlled environment AXIS II: Deferred AXIS III: Hepatitis C AXIS IV: Moderate to severe with unemployment and family stressors. AXIS V: GAF= 50 Brief History Reason for Admission The patient is a 60-year-old male with a history of bipolar 1 disorder who presents with reduced sleep and worsening symptoms with passive suicidal ideation likely secondary to Harvoni, recently prescribed for hepatitis C on . Admission Status: Voluntary Source of Information: Patient Interview, Chart Review, Clinical Materials Accompanying Referral Agency/[facility] emergency room Chief Complaint "When I started taking Harvoni I was not able to sleep and I ran out of lorazepam." History of Present Illness The patient is a 60-year-old male with a 25 year history of bipolar disorder and multiple hospitalizations who presents with insomnia, thought disorganization and suicidal ideation. He was previously at [facility] 05/24/15 for a manic episode. He appears hypomanic at this time with primary insomnia and suicidality as symptoms. The patient is a limited historian, but according to current and past records, the patient has had worsening symptoms since start of the medication to treat his hepatitis C. The patient has also been using alcohol which is made prescribing difficult for his outpatient psychiatrist and he has missed multiple appointments. The patient ran out of his lithium and had not been seen by his psychiatrist, Brennen Rainey M.D., for quite a few visits and so this was not renewed. His also had difficulty finding medications that help with sleep. The patient was previously treated in May 2015 with risperidone and quetiapine and lorazepam as well as olanzapine. He currently has thoughts of harming himself and reported in the emergency room that he could cut his wrists or to a medication overdose. He denied hallucinations or thoughts of harming others. He reported that his son is currently using heroin and this is an active stressor particularly in light of the patient's son previously charging him with assault which was later cleared. According to chart review, he reports that his first manic episode was in 1989 following the of his father when he became increasingly manic with hypergraphia, pressured speech, and decreased appetite. He denied irritability or anger. Prior to his last hospital stay he had been taking Depakote but was concerned about hepatitis C and so discontinued this medication which resulted in a seizure according to the patient. He reports occasional panic attacks but these appear to be managed with lithium. Presenting Symptoms: Mood (Weeks) Vegetative Functioning: Sleep (Decreased), Appetite (Normal), Energy (Increased ) Hospital Course The patient was admitted to the unit and was provided a safe and secure environment. The patient's outside psychiatrist was consulted and given that the patient had not been following up with appointments and was drinking alcohol , he would be restarted on lithium with hydroxyzine for anxiety and olanzapine to assist with landon. The patient's outside provider also stated that zolpidem was acceptable for insomnia. The patient will be restarted on lithium and switched to Eskalith 900 mg at bedtime. The patient was started on olanzapine 5 mg at bedtime for bipolar. Hydroxyzine 50 mg by mouth every 4 hours when necessary anxiety. Acetaminophen and ibuprofen were avoided given his hepatic impairment and lithium respectively. Hyoscyamine was used for pain. The day following admission the patient requested discharge, he was still quite hypomanic with rapid pressured speech. After he consulted with his he agreed to stay until his laboratory studies were drawn with lithium level 0.7, nonfasting glucose was elevated at 195 and sodium was 133. Hepatitis C serologies were pending. By the time of discharge the patient was much calmer and was not exhibiting significant signs of hypomania. At the time of discharge, the patient was reporting his mood as "good." Sleep was reported as "good," 8+ hours per staff. Appetite was reported as "good." His anxiety was reported as "low" and he denied depression. He denied auditory or visual hallucinations and any thought, intent or plan of hurting himself or others. He denied medication side effects. Exam Vital Signs (Last) Date Time Temp Pulse Resp B/P Pulse Ox O2 Delivery O2 Flow Rate FiO2 05/26/16 16:41 36.4 90 16 124/89 05/23/16 13:49 97 Room Air Exam Discharge Mental Status Exam Appearance: Neat/well groomed Attitude: Pleasant, Cooperative Behavior: Calm, cooperative, good eye contact Affect: Well Modulated/Appropriate Mood: "Good", euthymic Thought Process/Associations: Logical/Sequential Speech Production: Normal Speech Rate: Normal Speech Articulation: Normal Thought Content: Normal Danger to Self/Suicidal Ideation: None Danger to Others: None Hallucinations: Auditory (Denies), Visual (Denies) Consciousness: Alert Orientation: Person, Place, Date, Situation Memory: Grossly Intact Estimate Intellectual Function: Average Basis for IQ estimate: Awareness current events, Word use/vocabulary, Educational history, Employment history Attention/Concentration & Cognition: Improved Insight: Limited though improving Judgement: Limited though improving Test 05/23/16 08:20 05/23/16 08:37 05/27/16 09:30 Hold Urine Received (Received) Magnesium Level 2.0mg/dL (1.6-2.6) Lipase 35U/L (13-60) Hold [place] Top Tube Received (Received) White Blood Count 8.3th/mm3 (3.8-10.1) Red Blood Count 5.39mil/mm3 (4.40-5.80) Hemoglobin 16.5g/dL (13.8-17.2) Hematocrit 47.4% (41.0-50.0) Mean Corpuscular Volume 87.9fL (81-100) Mean Corpuscular Hemoglobin 30.6pg (27.0-35.0) Mean Corpuscular Hemoglobin Concent 34.8% (32.0-37.0) Red Cell Distribution Width 12.8% (12.3-15.4) Platelet Count 179bil/L (150-400) Neutrophils (%) (Auto) 51.9% (40-74) Lymphocytes (%) (Auto) 38.8% (14-46) Monocytes (%) (Auto) 7.4% (4-12) Eosinophils (%) (Auto) 1.6% (0-5) Basophils (%) (Auto) 0.1% (0-3) Sodium Level 133mEq/L (134-144) Potassium Level 4.0mEq/L (3.5-5.2) Chloride Level 97mEq/L (97-108) Carbon Dioxide Level 22mmol/L (18-29) Blood Urea Nitrogen 18mg/dL (6-24) Creatinine 0.79mg/dL (0.76-1.27) Estimat Glomerular Filtration Rate 107mL/min (>59) Glucose Level 195mg/dL (60-99) Calcium Level 9.6mg/dL (8.5-10.1) Total Bilirubin 0.5mg/dL (0.0-1.2) Aspartate Amino Transf (AST/SGOT) 27U/L (0-50) Alanine Aminotransferase (ALT/SGPT) 25U/L (0-44) Alkaline Phosphatase 58U/L (25-160) Total Protein 7.4g/dL (6.4-8.4) Albumin 4.7g/dL (3.4-5.0) [place] Level 0.7mEq/L (0.5-1.5) Discharge Medications Discharge Medications ([Therapeutic Multivit/Minerals]) 1 TABLET TABLET 1 TABLET PO DAILY Prescribed by: ISAIAS TORO MD Ledipasvir/Sofosbuvir (Harvoni 90-400 mg Tablet) 1 Each Tablet 1 EACH PO DAILY ( Reported) [place] Carbonate ([place] Carbonate XR) 450 Mg Tablet.er 900 MG PO DAILY Prescribed by: ERIC SULLIVAN MD Olanzapine (Olanzapine) 5 Mg Tablet 5 MG PO HS Prescribed by: ERIC SULLIVAN MD [place]-3 Acid Ethyl Esters (Lovaza) 1 Gm Capsule 1 GM PO DAILY Prescribed by: ISAIAS TORO MD As needed Hydroxyzine Pamoate (HydrOXYzine Pamoate) 50 Mg Capsule 50 MG PO TID PRN PRN For Anxiety or Agitation Prescribed by: ERIC SULLIVAN MD Hyoscyamine SL (Hyoscyamine SL) 0.125 Mg Subl 0.125 MG SL Q4H PRN PRN For Moderate Pain Prescribed by: RUDOLPH WELCH MD Zolpidem (Ambien) 5 Mg Tablet 10 MG PO HS@22 PRN PRN Insomnia Prescribed by: ERIC SULLIVAN MD Followup Plan Disposition: The patient was requesting discharge and there was no indication for further hospitalization. He was released into the care of his to return home. The patient verbally consented to take the prescribed medications. The patient verbally expressed understanding of the risks, benefits, alternative treatment options, and risks of not taking the prescribed medication. The patient verbally expressed understanding of the medication instructions, that he will adhere to the prescribed medication, and that he will go to all aftercare scheduled appointments. Follow-up plan Psychiatric follow-up Dr. Brennen Wu MD on 06/06/16 at 12:15pm [id number] [address] Patient Instructions Should you have any thoughts of harming yourself or others, please call the crisis line, your provider, 911, or go to the nearest Emergency Department. Do not change or discontinue your medications without discussing with your provider. You have been given a prescription for 14 days supply of your medication Your hepatitis C serology labs were pending at the time of discharge. Please have your provider contact the lab for results. Eric Sullivan MD May 27, 2016 18:43
== END 2016-05-27 12:05 | disposition home or self-care (01) | DRG 885 ==
LOC: SED 07:04 → MHC 13:15
PROVIDERS: ADMIT Psychiatry & Neurology Psychiatry; ATTEND Psychiatry & Neurology Psychiatry
DX: F31.0 Bipolar disorder, current episode hypomanic (principal); F10.21 Alcohol dependence, in remission; F17.210 Nicotine dependence, cigarettes, uncomplicated; B19.20 Unspecified viral hepatitis C without hepatic coma; G47.09 Other insomnia

== ENCOUNTER 2016-05-31 12:04 | Emergency (ER) | payer OTHER, MEDICARE ==
[~2016-05-31] VITALS: Ht 185.4 cm; Wt 95.5 kg
[~2016-05-31 12:04] MED LIST changes: -CHOL100043 PO; +HYDR50CA3 PO; +LEDI1TAB PO; -LORA-303 PO; -LORA1TAB PO; +OLAN5TAB PO; -PANT40TA2 PO; +ZLP5T PO
[2016-05-31 12:16] VITALS: BP 154/93; PULSE 103; RESP 15; O2SAT 94
--- NOTE | 2016-05-31 12:25 | ED.REPORT ---
HPI-Overdose/Alcohol Toxicity Date of Service May 31, 2016 ED Provider: Jermaine Ogden MD 60 year old male presents to the ER via EMS accompanied by his due to accidental heroin overdose. He states that he is not a regular heroin user, and has not used heroin since early adulthood prior to today. Recently he has been experiencing insomnia and anxiety due to Harvoni use for the past few weeks, which prompted his heroin use today. Patient also admits to taking an Ambien. His son, who is a regular heroin user, informed medics that the patient lost consciousness and turned blue, so he immediately started CPR and gave patient 0.4mg IM Narcan on scene. EMS then gave an additional 0.5mg Narcan IV. also reports that the patient smoked some THC product yesterday and subsequently had a five hour anxiety attack. Daughters report that the patient has been "making bad decisions" since being discharged from the psychiatric floor here 5 days ago. Nursing Notes Stated Complaint: HEROIN OVERDOSE Chief Complaint: Substance Abuse Nursing Notes Reviewed: Yes Allergies: Coded Allergies: No Known Allergies (Unverified , 05/31/16) Scheduled ([Therapeutic Multivit/Minerals]) 1 TABLET TABLET 1 TABLET PO DAILY Ledipasvir/Sofosbuvir (Harvoni 90-400 mg Tablet) 1 Each Tablet 1 EACH PO DAILY [place] Carbonate ([place] Carbonate XR) 450 Mg Tablet.er 900 MG PO DAILY Olanzapine (Olanzapine) 5 Mg Tablet 5 MG PO HS [place]-3 Acid Ethyl Esters (Lovaza) 1 Gm Capsule 1 GM PO DAILY Scheduled PRN Hydroxyzine Pamoate (HydrOXYzine Pamoate) 50 Mg Capsule 50 MG PO TID PRN PRN For Anxiety or Agitation Hyoscyamine SL (Hyoscyamine SL) 0.125 Mg Subl 0.125 MG SL Q4H PRN PRN For Moderate Pain Zolpidem (Ambien) 5 Mg Tablet 10 MG PO HS@22 PRN PRN Insomnia General Time Seen by Provider: 12:20 Chief Complaint Drug overdose (Heroin) Modifying Factors: Accidental Initial Psychiatric Assessment: Deny suicidal intent/plan Hx Obtained From: Patient, Spouse, EMS Arrived By: Ambulance Onset Occurred: Just prior to arrival Symptom Duration: Since onset Related History: Reports: Substance abuse Recent Healthcare: Recent hospitalization Similar Sx Previous: No Risk-Overdose/Alcohol Tox )( Suicide Risk Stratification : Alcohol use: Substance abuse RF Statements: Risk factors reviewed Past Medical History Past Medical History Notes: Last admit was for mild lithium toxicity in November 06 Past Medical History Bipolar, most recent care center admit 05/2015 h/o prior lithum OD h/o chronic abdominal pain (last ED w/u including neg Abd CT in 2012) GERD Negative Nuclear Cardiac Stress Test 2011 Past Surgical History Cataract Surgery Smoking History Current Every Day Smoker Social History Alcohol Use: In recovery Drug Use: THC Other Social History: Ambulatory Status Independent Review of Systems Constitutional: Denies: Chills, Fever Respiratory: Denies: Non-productive cough, Shortness of breath Cardiovascular: Denies: Chest pain GI: Denies: Abdominal pain, Nausea, Vomiting Neurologic: Reports: Syncope, Denies: Headache Complete sys rev & neg: except as marked. Physical Exam Initial Vital Signs Vital Signs (First) Date Time Temp Pulse Resp B/P Pulse Ox O2 Delivery O2 Flow Rate FiO2 05/31/16 12:16 35.8 103 15 154/93 94 Room Air 05/31/16 13:33 2 Initial VS: Reviewed Head / Eyes: Atraumatic, Normocephalic Neck: Supple, Non-tender, Full range of motion Extremities: Vascular intact, Neuro intact, No swelling, No tenderness General/Constitutional: Awake, Alert, Well developed, Well nourished Respiratory / Chest: Atraumatic, Breath sounds NL, Breath sounds = bilat, No respiratory distress, No rales, No rhonchi, No wheezing Cardiovascular: Heart rate NL, Regular rhythm, Heart sounds NL, Cap refill not delayed, Peripheral circulation NL Abdomen: Atraumatic, Soft, Non-tender, No guarding, No rebound Neurologic: Oriented X3, Speech NL, No motor deficits, No sensory deficits Psychiatric: Affect NL, Mood NL, Not suicidal, Not homicidal, No hallucinations , Cognitive function NL Interpretation & Diagnostics Lab Results Interpretation Result Diagram: 05/31/16 1301 Test 05/31/16 13:01 Sodium Level 138mEq/L (134-144) Potassium Level 4.3mEq/L (3.5-5.2) Chloride Level 102mEq/L (97-108) Carbon Dioxide Level 18mmol/L (18-29) Blood Urea Nitrogen 12mg/dL (6-24) Creatinine 0.93mg/dL (0.76-1.27) Estimat Glomerular Filtration Rate 88mL/min (>59) Glucose Level 211mg/dL (60-99) Calcium Level 9.2mg/dL (8.5-10.1) Total Bilirubin 0.4mg/dL (0.0-1.2) Aspartate Amino Transf (AST/SGOT) 35U/L (0-50) Alanine Aminotransferase (ALT/SGPT) 24U/L (0-44) Alkaline Phosphatase 66U/L (25-160) Total Protein 7.4g/dL (6.4-8.4) Albumin 4.5g/dL (3.4-5.0) ECG Interpretation ECG Interpretation: Sinus tachycardia, rate 100 RBBB Time: 13:06 Interpreted by: ED physician Re-Eval/Medical Decision Med Decision/Clinical Course Patient is awake and alert for over 2 hours of observation. No significant stimulus has been required to awaken him or arouse him. His oxygen saturations have been as low as 90% when sleeping but he has consistently awakened to voice only. He has very poor insight as to the egregious nature of the events of today. He is focused on the addiction problems of his son rather than the overt problem of today. I tried my best to redirect him to face the reality of his own addiction issues. Source of Hx: Old records Re-Evaluation/Progress #1: Time of Eval: 13:11 Re-Evaluation/Progress Note: Patient's daughters are now present at bedside. Updated patient and family on the plan of care. All other questions addressed. Re-Evaluation/Progress #2: Time of Eval: 14:14 Re-Evaluation/Progress Note: Discussed lab results and plan to discharge. Patient is amenable to the plan. Return precautions given. All other questions addressed. Consultation : Referral / Consult Name: Will Vega DO Consulted With: Psychiatry Call Returned at: 14:11 Note: Dr. Vega suggested increasing olanzapine to 10 mg at bedtime rather than 5 mg as previously prescribed. Counseled Regarding: Diagnosis, Lab results, Need for follow-up, When/why to return to ED Discharge & Departure Impression: Primary Impression: Heroin overdose Encounter type: initial encounter Injury intent: accidental or unintentional Qualified Code: T40.1X1A - Poisoning by heroin, accidental ( unintentional), initial encounter )( Condition at Discharge: No danger to self, No danger to others, No suicidal ideation, No homicidal ideation Disposition: Home Discharge Condition All VS Reviewed: Yes Condition: Stable Patient Instructions: Narcotic Abuse (ED) Additional Instructions: Stop using narcotics. Take 2 of your prescribed olanzapine (10 mg) at night before bed to help with your sleeplessness. Return to the ER if you develop any concerning symptoms. Follow-up with your psychiatrist next week as planned. Seek immediate care if you have any thoughts of harming yourself or others. Referrals: Deanna Galdamez DO (PCP) Scribe Attestation Portions of this note were transcribed by Dayron Marroquin. I, Dr. Ogden, personally performed the history, physical exam and medical decision-making; I reviewed and confirmed the accuracy of the information in the transcribed note. Signed by: Carrie Ortega, 05/31/2016 and 14:18 copies to: Deanna Galdamez Kirk H MD May 31, 2016 12:24 DAYRON MARROQUIN May 31, 2016 12:35
[2016-05-31 13:33] VITALS: BP 145/107; PULSE 98; RESP 8; O2SAT 93
[2016-05-31] MEDS ORDERED: NALO4SPR NS (14:40)
[2016-05-31 14:44] VITALS: BP 172/98; PULSE 91; RESP 16; O2SAT 93
== END 2016-05-31 14:29 | disposition home or self-care (01) ==
LOC: SED 12:04 → EDBD 12:04 → SED 14:29
DX: T40.1X1A Poisoning by heroin, accidental (unintentional), initial encounter (principal); X58.XXXA Exposure to other specified factors, initial encounter; Y93.89 Activity, other specified; Y99.8 Other external cause status; Y92.019 Unspecified place in single-family (private) house as the place of occurrence of the external cause; F12.10 Cannabis abuse, uncomplicated; F17.200 Nicotine dependence, unspecified, uncomplicated

== ENCOUNTER 2016-09-04 20:22 | Emergency (ER) | payer OTHER, MEDICARE ==
[~2016-09-04] VITALS: Ht 185.4 cm; Wt 92.6 kg
[~2016-09-04 20:22] MED LIST changes: +NALO4SPR NS
[2016-09-04 20:25] VITALS: BP 187/108; PULSE 105; RESP 16; O2SAT 97
[2016-09-04 21:09] LABS: BASOPHILS % (AUTO) 0.2 % (0-3); EOSINOPHILS % (AUTO) 1.6 % (0-5); MONOCYTES % (AUTO) 8.9 % (4-12); Mean Corpuscular Hemoglobin 31.5 pg (27.0-35.0); Mean Corpuscular Volume 90.5 fL (81-100); NEUTROPHILS % (AUTO) 64.1 % (40-74); Platelet Count 223 bil/L (150-400)
--- NOTE | 2016-09-04 21:48 | ED.REPORT ---
HPI-Psychiatric Illness Date of Service September 04, 2016 ED Provider: Dr. Brewer Pt is a 60 y/o male w/ a hx of bipolar disorder, prior OD on [place], presenting to the ED due to stress. He states he has been experiencing life stressors mostly related to his family. His son is a heroin addict and "is evil because of the drug". He is his of 39 years, and is happy about that. Tonight, he is requesting to be admitted to the mental health center here at [facility]. The purpose of being in the hospital is to "not be around his family anymore because it is driving him crazy and will cause him to become depressed" . He wants to be away from them for a long time. He denies SI, HI. He has no history of suicide attempts. There have been many previous psychiatric admissions. He sees a psychiatrist in [place] and has been taking all of his regular medications as directed. Nursing Notes Stated Complaint: PSYCHIATRIC Chief Complaint: Psychiatric Complaint Nursing Notes Reviewed: Yes Allergies: Coded Allergies: No Known Allergies (Unverified , 05/31/16) Scheduled ([Therapeutic Multivit/Minerals]) 1 TABLET TABLET 1 TABLET PO DAILY Ledipasvir/Sofosbuvir (Harvoni 90-400 mg Tablet) 1 Each Tablet 1 EACH PO DAILY [place] Carbonate ([place] Carbonate XR) 450 Mg Tablet.er 900 MG PO DAILY Olanzapine (Olanzapine) 5 Mg Tablet 5 MG PO HS [place]-3 Acid Ethyl Esters (Lovaza) 1 Gm Capsule 1 GM PO DAILY Scheduled PRN Hydroxyzine Pamoate (HydrOXYzine Pamoate) 50 Mg Capsule 50 MG PO TID PRN PRN For Anxiety or Agitation Hyoscyamine SL (Hyoscyamine SL) 0.125 Mg Subl 0.125 MG SL Q4H PRN PRN For Moderate Pain Naloxone HCl (Narcan) 4 Mg/Actuation [place] 4 MG NS ONCE PRN PRN For Opiate Reversal Zolpidem (Ambien) 5 Mg Tablet 10 MG PO HS@22 PRN PRN Insomnia General Time Seen by MD: 21:48 Chief Complaint Other (stress) Hx Obtained From: Patient Arrived By: Walk-in Onset Occurred: Onset unknown Symptom Duration: Since onset Progression Since Onset: Constant Severity: Current: No pain currently Severity: Maximum: No pain Similar Sx Previous: Yes Risk-Psychiatric Illness Suicide Risk Stratification RF Statements: Risk factors N/A Past Medical History Past Medical History Notes: Last admit was for mild lithium toxicity in November 06 Past Medical History Bipolar, most recent care center admit 05/2015 h/o prior lithum OD h/o chronic abdominal pain (last ED w/u including neg Abd CT in 2012) GERD Negative Nuclear Cardiac Stress Test 2011 Past Surgical History Cataract Surgery Smoking History Current Every Day Smoker Social History Alcohol Use: In recovery Drug Use: THC Other Social History: Ambulatory Status Independent Review of Systems Psychiatric: Reports: Depression, Stress, Denies: Homicidal ideation, Suicidal ideation Complete sys rev & neg: except as marked. Physical Exam Initial Vital Signs Vital Signs (First) Date Time Temp Pulse Resp B/P Pulse Ox O2 Delivery O2 Flow Rate FiO2 09/04/16 20:25 37.7 105 16 187/108 97 Room Air Initial VS: Reviewed, Vital signs abnormal Head / Eyes: Atraumatic, Normocephalic, PERRL ENT: Mucous membranes moist, Conjunctiva normal, No scleral icterus Neck: Supple, Full range of motion Respiratory: Breath sounds normal, Clear to auscultation, No respiratory distress Cardiovascular: Regular rate & rhythm, Heart sounds normal, Intact distal pulses Abdomen / GI: Soft, No distention Extremities: Vascular intact, Neuro intact, No swelling, No tenderness Skin: Warm, Dry, No cyanosis General/Constitutional: Awake, Alert, No acute distress, Cooperative, Not toxic appearing Neurologic: Oriented X3, Speech NL, No motor deficits, No sensory deficits Psychiatric: Not suicidal, Not homicidal, No hallucinations Abnormal Thinking / Perception: Positive: Flight of ideas Manic Interpretation & Diagnostics Lab Results Interpretation Result Diagram: 09/04/16205309/04/162053 Test 09/04/16 20:54 White Blood Count 10.5th/mm3 (3.8-10.1) Red Blood Count 4.85mil/mm3 (4.40-5.80) Hemoglobin 15.3g/dL (13.8-17.2) Hematocrit 43.9% (41.0-50.0) Mean Corpuscular Volume 90.5fL (81-100) Mean Corpuscular Hemoglobin 31.5pg (27.0-35.0) Mean Corpuscular Hemoglobin Concent 34.9% (32.0-37.0) Red Cell Distribution Width 14.4% (12.3-15.4) Platelet Count 223bil/L (150-400) Neutrophils (%) (Auto) 64.1% (40-74) Lymphocytes (%) (Auto) 25.1% (14-46) Monocytes (%) (Auto) 8.9% (4-12) Eosinophils (%) (Auto) 1.6% (0-5) Basophils (%) (Auto) 0.2% (0-3) Sodium Level 139mEq/L (134-144) Potassium Level 3.5mEq/L (3.5-5.2) Chloride Level 102mEq/L (97-108) Carbon Dioxide Level 21mmol/L (18-29) Blood Urea Nitrogen 11mg/dL (6-24) Creatinine 0.88mg/dL (0.76-1.27) Estimat Glomerular Filtration Rate 94mL/min (>59) Glucose Level 116mg/dL (60-99) Calcium Level 9.8mg/dL (8.5-10.1) Total Bilirubin 0.4mg/dL (0.0-1.2) Aspartate Amino Transf (AST/SGOT) 32U/L (0-50) Alanine Aminotransferase (ALT/SGPT) 22U/L (0-44) Alkaline Phosphatase 77U/L (25-160) Total Protein 7.7g/dL (6.4-8.4) Albumin 4.4g/dL (3.4-5.0) Hold [place] Top Tube Received (Received) [place] Level 0.3mEq/L (0.5-1.5) Lab Results Interpretation: Urine tox: negative Breathalyzer: 0 Re-Eval/Medical Decision Med Decision/Clinical Course 60-year-old presents voluntarily with increasing manic behavior and symptoms. He is not suicidal or homicidal. He is requesting hospitalization, and awaits evaluation by [employer] REPAIRER this morning. He is medically clear. [place] level was subtherapeutic, and he was given his routine 900 mg dose last night. Transferred to Dr. Ogden at 6 AM for disposition pending [employer] evaluation. Re-Evaluation/Progress : Time of Eval: 22:47 Re-Evaluation/Progress Note: Pt rechecked. He is willing to stay overnight to await placement. Will order [place] level. Counseled Regarding: Diagnosis, Lab results, Need for follow-up, When/why to return to ED Discharge & Departure Impression: Primary Impression: Bipolar disease, manic )( Condition at Discharge: Clear for psych facility Discharge Condition All VS Reviewed: Yes Condition: Stable Referrals: Deanna Galdamez DO (PCP) Care Transferred to: Dr. Ogden Care Transferred at: 06:07 Carrie Attestation Portions of this note were transcribed by Keith Larson. I, Dr. Brewer personally performed the history, physical exam and medical decision-making; I reviewed and confirmed the accuracy of the information in the transcribed note. Signed by Carrie Haas, 09/04/16 - [id number] copies to: Deanna Galdamez Christopher W MD September 04, 2016 21:48 KEITH LARSON September 04, 2016 21:56
[2016-09-04 23:53] VITALS: BP 177/98; PULSE 90; RESP 18; O2SAT 97
[2016-09-05 02:15] VITALS: BP 161/86; PULSE 101; RESP 16; O2SAT 97
[2016-09-05] MEDS ORDERED: LORazepam 2 mg Tablet PO ONE (02:40)
[2016-09-05 06:05] VITALS: BP 131/81; PULSE 95; RESP 18; O2SAT 96
--- NOTE | 2016-09-05 06:36 | PCM.EDPN ---
ED Note Date of Service September 05, 2016 I assumed care of this patient from Dr. Brewer at approximately 6 AM September 05. The patient is sleeping comfortably at this time: 0634. The plan for now is to await social work arrival at 9:30 to begin assessment for outpatient versus inpatient planning. All vital signs reviewed, most recent vital signs are normal. Current time 1041. The patient has just spoken with the social services analyst and desires to be discharged home. He is able to converse fluently, he does not appear manic to me at this time. He denies any suicidal ideation and believes that he can arrange outpatient follow-up with his mental health provider in the coming days. He agrees to return to the emergency department if things are going poorly. Assessment: Acute situational disturbance and hypomania. Plan: Discharge to home follow up with outpatient services as discussed. Jermaine Ogden MD September 05, 2016 06:36
[2016-09-05 09:22] VITALS: BP 134/91; PULSE 103; RESP 18; O2SAT 95
[2016-09-05 11:00] VITALS: BP 148/96; PULSE 108; O2SAT 96
== END 2016-09-05 11:01 | disposition home or self-care (01) ==
LOC: SED 20:22
DX: F31.0 Bipolar disorder, current episode hypomanic (principal); F43.0 Acute stress reaction; K21.9 Gastro-esophageal reflux disease without esophagitis; F17.200 Nicotine dependence, unspecified, uncomplicated

== ENCOUNTER 2016-09-08 15:45 | Emergency (ER) | payer OTHER, MEDICARE ==
[~2016-09-08] VITALS: Ht 185.4 cm; Wt 90.9 kg
[2016-09-08 15:52] VITALS: BP 150/85; PULSE 112; RESP 18; O2SAT 97
--- NOTE | 2016-09-08 16:54 | ED.REPORT ---
HPI-General Illness Date of Service September 08, 2016 ED Provider: Dr. Jermaine Ogden MD Patient is a 60 year old male with a history of bipolar disorder and prior OD on Mak[place] who presents to the ED via EMS complaining of an inability to speak earlier this afternoon. Patient states that he experienced several episodes of these symptoms. He reports that he was "drinking a beer and relaxing" prior to symptom onset. Patient is currently expressing concern for stroke. He has experienced recent stressors including recent divorce. Patient was seen in the ED on 09/04 for bipolar disorder. Patient is a difficult historian. Nursing Notes Stated Complaint: ANXIETY Chief Complaint: Psychiatric Complaint Nursing Notes Reviewed: Yes Allergies: Coded Allergies: No Known Allergies (Unverified , 05/31/16) Scheduled ([Therapeutic Multivit/Minerals]) 1 TABLET TABLET 1 TABLET PO DAILY Ledipasvir/Sofosbuvir (Harvoni 90-400 mg Tablet) 1 Each Tablet 1 EACH PO DAILY [place] Carbonate ([place] Carbonate XR) 450 Mg Tablet.er 900 MG PO DAILY Olanzapine (Olanzapine) 5 Mg Tablet 5 MG PO HS [place]-3 Acid Ethyl Esters (Lovaza) 1 Gm Capsule 1 GM PO DAILY Scheduled PRN Hydroxyzine Pamoate (HydrOXYzine Pamoate) 50 Mg Capsule 50 MG PO TID PRN PRN For Anxiety or Agitation Hyoscyamine SL (Hyoscyamine SL) 0.125 Mg Subl 0.125 MG SL Q4H PRN PRN For Moderate Pain Naloxone HCl (Narcan) 4 Mg/Actuation [place] 4 MG NS ONCE PRN PRN For Opiate Reversal Zolpidem (Ambien) 5 Mg Tablet 10 MG PO HS@22 PRN PRN Insomnia General Time Seen by MD: 16:53 Chief Complaint Other (Anxiety) Hx Obtained From: Patient Arrived By: Ambulance Sudden in Onset?: No Onset Occurred: 1 - 4 hours ago Symptom Duration: Intermittent Pertinent Negative: Pt denies other symptoms Recent Healthcare: No recent doctor visit, No recent hospitalization Past Medical History Past Medical History Notes: Last admit was for mild lithium toxicity in November 06 Past Medical History Bipolar, most recent care center admit 05/2015 h/o prior lithum OD h/o chronic abdominal pain (last ED w/u including neg Abd CT in 2012) GERD Negative Nuclear Cardiac Stress Test 2011 Past Surgical History Cataract Surgery Smoking History Current Every Day Smoker Social History Alcohol Use: In recovery Drug Use: THC Other Social History: (Getting ), Local resident Ambulatory Status Independent Review of Systems Full Review of Systems Constitutional: Denies: Chills, Fever Respiratory: Denies: Shortness of breath GI: Denies: Nausea, Vomiting Neurologic: Reports: Unable to speak Psychiatric: Reports: Anxiety, Stress Complete sys rev & neg: except as marked. Physical Exam Vital Signs Vital Signs Date Time Temp Pulse Resp B/P Pulse Ox O2 Delivery O2 Flow Rate FiO2 09/08/16 15:52 37 112 18 150/85 97 Room Air Initial VS: Reviewed Neck: Supple, Non-tender, Full range of motion Extremities: Vascular intact, Neuro intact, No swelling, No tenderness Skin: Warm, Dry, No cyanosis General/Constitutional: Awake, Alert Behavior: Positive: Agitated, Restless Head / Eyes: Atraumatic, Normocephalic, PERRL Respiratory / Chest: Atraumatic, Breath sounds NL, Breath sounds = bilat, No respiratory distress Cardiovascular: Heart rate NL, Regular rhythm, Heart sounds NL Abdomen: Atraumatic, Soft Neurologic: Oriented X3, Speech NL, No motor deficits, No sensory deficits, CN II - XII intact, Reflexes equal bilat, Cerebellar NL, Memory NL NEURO: See NIH Stroke Scale Abnormal Mood/Affect: Positive: Inappropriate, Labile, Pressured speech Abnormal Thinking / Perception: Positive: Judgment abnormal, Loose associations Interpretation & Diagnostics Lab Results Interpretation Test 09/08/16 16:50 Hold Urine Received (Received) CT Head Interpretation IMPRESSION: No acute process. Dictated by: Ramu Moon M.D. on 09/08/2016 at 18:07 Study: Head CT no contrast Interpretation / Wet Read by: Interpret - Radiologist Re-Eval/Medical Decision Med Decision/Clinical Course He does appear to be hypomanic as well. He is not requesting mental health services nor do I believe he is gravely disabled. Time of Eval: 17:08 Patient Status: Condition improved Re-Evaluation/Progress Note: Pt is informed of his reassuring results. All questions about diagnosis are addressed. He understands and agrees with the intended treatment plan. Counseled Regarding: Diagnosis, Need for follow-up, When/why to return to ED Discharge & Departure Primary Impression: Transient speech disturbance Disposition: Home Discharge Condition All VS Reviewed: Yes Condition: Improved Additional Instructions: Your emergency department results today including examination lab work and head CT are reassuring that there is no dangerous cause for concern at this time and there is not indication of stoke at this time. Schedule a follow up appointment with your primary care physician in the next 2- 3 days for a recheck. Please return to the emergency department if you develop any new or worsening symptoms including any fever, chills, vomiting, shortness of breath, chest pain or any numbness/tingling. Referrals: Deanna Galdamez DO (PCP) Scribe Attestation Portions of this note were transcribed by Aide New. I, Dr. Ogden personally performed the history, physical exam and medical decision-making; I reviewed and confirmed the accuracy of the information in the transcribed note. Signed by: Carrie Villanueva, 09/08/16 0159. copies to: Deanna Galdamez DO Risk Factors )( TPA Administration/Criteria Stroke Thrombolytic Therapy : TPA Administered Intravenously: No, not indicated NIH Stroke Scale Level of Consciousness: Alert and responsive (0) Ask Month & Age: Both questions right (0) Open/Close Eyes/Hand Cloth Cutter: Performs both tasks (0) Horizontal EO Movements: None (0) Visual Dominguez: No visual loss (0) Facial Palsy: Normal symmetry (0) Right Arm Motor Drift (10s): No drift 10 sec (0) Left Arm Motor Drift (10s): No drift 10 sec (0) Right Leg Motor Drift (5s): No drift 5 sec (0) Left Leg Motor Drift (5s): No drift 5 sec (0) Limb Ataxia FNF/Heel-Álvarez: No ataxia (0) Sensation (Arms/Legs/Face): No sensory loss (0) Language Aphasia: No aphasia, normal (0) Dysarthria: No dysarthria, normal (0) Extinction/Inattention: No exctinct/inattent (0) NIHSS Score: 0 Time NIHSS Performed: 17:05 )( CVA Risk Stratification Risk factors reviewed Jermaine Ogden MD September 08, 2016 16:54 AIDE NEW September 08, 2016 16:59
--- NOTE | 2016-09-08 18:09 | DRSVH ---
PROCEDURE: CT BRAIN WITHOUT CONTRAST ([id number]) INDICATIONS: aphasia, transient TECHNIQUE: Noncontrast 4.5 mm thick angled axial sections acquired from the foramen magnum to the vertex, with c oronal reformats. COMPARISON: [facility], CT, CT BRAIN WO CON, 04/20/2016, 12:43. FINDINGS: Image quality: Excellent. CSF spaces: Basal cisterns are patent. No extra-axial fluid collections. The ventricles are symmet marce in size and shape. Brain: No intracranial bleeds or masses. There is cerebral volume loss for age, with resultant vent ricular and sulcal prominence. There are periventricular and deep white matter chronic small vessel ischemic changes. There is intracranial internal carotid artery atherosclerosis. Skull and face: Calvarium and visualized facial bones appear intact, without suspicious lesions. Sinuses: Visualized sinuses and mastoids are clear. IMPRESSION: No acute process. Dictated by: Ramu Moon M.D. on 09/08/2016 at 18:07 Approved by: Ramu Moon M.D. on 09/08/2016 at 18:07
[2016-09-08 18:19] VITALS: BP 149/78; PULSE 110; RESP 18; O2SAT 99
== END 2016-09-08 18:20 | disposition home or self-care (01) ==
LOC: SED 15:45
DX: R47.89 Other speech disturbances (principal); F31.9 Bipolar disorder, unspecified; K21.9 Gastro-esophageal reflux disease without esophagitis; F17.200 Nicotine dependence, unspecified, uncomplicated

== ENCOUNTER 2016-10-02 01:32 | Emergency (ER) | payer OTHER, MEDICARE ==
[~2016-10-02] VITALS: Ht 185.4 cm; Wt 88.6 kg
[~2016-10-02 01:32] MED LIST changes: +HYOS-21 SL; -HYOS0.1218 SL
[2016-10-02 01:37] VITALS: BP 151/101; PULSE 110; RESP 18; O2SAT 97
--- NOTE | 2016-10-02 02:39 | ED.REPORT ---
HPI-NVD Date of Service Oct 02, 2016 ED Provider: Dr. Dashawn March M.D. The patient is a 61 year old male with a medical history including bipolar disorder, GERD, and chronic abdominal pain who presents to the with nausea and vomiting (x10) onset 00:30 this morning. The patient also reports recent memory loss. He denies insomnia, weakness, or other symptoms. The patient presents symptom-free. He is a rambling historian. Nursing Notes Stated Complaint: VOMITING AND BLACK OUT Chief Complaint: General Complaint Nursing Notes Reviewed: Yes Allergies: Coded Allergies: No Known Allergies (Unverified , 10/02/16) Scheduled ([Therapeutic Multivit/Minerals]) 1 TABLET TABLET 1 TABLET PO DAILY Ledipasvir/Sofosbuvir (Harvoni 90-400 mg Tablet) 1 Each Tablet 1 EACH PO DAILY [place] Carbonate ([place] Carbonate XR) 450 Mg Tablet.er 900 MG PO DAILY Olanzapine (Olanzapine) 5 Mg Tablet 5 MG PO HS [place]-3 Acid Ethyl Esters (Lovaza) 1 Gm Capsule 1 GM PO DAILY Scheduled PRN Hydroxyzine Pamoate (HydrOXYzine Pamoate) 50 Mg Capsule 50 MG PO TID PRN PRN For Anxiety or Agitation Hyoscyamine SL (Hyoscyamine SL) 0.125 Mg Subl 0.125 MG SL Q4H PRN PRN For Moderate Pain Naloxone HCl (Narcan) 4 Mg/Actuation [place] 4 MG NS ONCE PRN PRN For Opiate Reversal Ondansetron ODT (Ondansetron ODT) 8 Mg Tab.rapdis 8 MG PO QID PRN PRN For Nausea Zolpidem (Ambien) 5 Mg Tablet 10 MG PO HS@22 PRN PRN Insomnia General Time Seen by MD: 02:37 Chief Complaint Nausea, Vomiting Hx Obtained From: Patient Arrived By: Walk-in Onset Occurred: 1 - 4 hours ago Symptom Duration: 1 - 4 hours Location: : No pain Severity: Current: No pain currently Severity: Maximum: No pain Pertinent Negative: Relieved by nothing Related History: Reports: GERD Recent Healthcare: No recent doctor visit Past Medical History Past Medical History Notes: Patient admitted for mild lithium toxicity in November 07, 2015 Past Medical History Bipolar h/o prior lithum OD h/o chronic abdominal pain (last ED w/u including neg Abd CT in 2012) GERD Negative Nuclear Cardiac Stress Test 2011 Past Surgical History Cataract Surgery Smoking History Current Every Day Smoker Social History Alcohol Use: In recovery Drug Use: THC Other Social History: , Local resident Ambulatory Status Independent Review of Systems Review of Systems Note: + Recent memory loss Constitutional: Denies: Fever GI: Reports: Nausea, Vomiting Neurologic: Denies: Weakness Complete sys rev & neg: except as marked. Respiratory: Denies: Non-productive cough, Shortness of breath Psychiatric: Denies: Insomnia Physical Exam Initial Vital Signs Vital Signs (First) Date Time Temp Pulse Resp B/P Pulse Ox O2 Delivery O2 Flow Rate FiO2 10/02/16 01:37 36.9 110 18 151/101 97 Room Air Initial VS: Reviewed, Vital signs abnormal Head / Eyes: Atraumatic, Normocephalic ENT: Conjunctiva normal, No scleral icterus Neck: Supple, Full range of motion Respiratory: Breath sounds normal, Clear to auscultation, No respiratory distress Cardiovascular: Regular rate & rhythm, Heart sounds normal Skin: Warm, Dry, No cyanosis Neurologic: Alert, Oriented, Nonfocal General/Constitutional: Awake, Alert, Well hydrated Abdomen: Soft, Non-tender, No distention Psychiatric: Cognitive function NL Abnormal Mood/Affect: Positive: Pressured speech Abnormal Thinking / Perception: Positive: Flight of ideas Interpretation & Diagnostics URINE DIPSTICK: Bedside Urine Specific [place] * 1.010 Bedside Urine pH * 6 Bedside Urine Leukocyte Esterase * Negative Bedside Urine Nitrite * Negative Bedside Urine Protein * Negative Bedside Urine Glucose * 50mg/dl Bedside Urine Ketones * Negative Bedside Urine Urobilinogen * Normal Bedside Urine Bilirubin * Negative Bedside Urine Occult Blood * Negative Urine to Lab * No Lab Results Interpretation Result Diagram: 10/02/167 10/02/16 0317 Test 10/02/16 03:17 White Blood Count 17.6th/mm3 (3.8-10.1) Red Blood Count 5.23mil/mm3 (4.40-5.80) Hemoglobin 16.2g/dL (13.8-17.2) Hematocrit 47.5% (41.0-50.0) Mean Corpuscular Volume 90.8fL (81-100) Mean Corpuscular Hemoglobin 31.0pg (27.0-35.0) Mean Corpuscular Hemoglobin Concent 34.1% (32.0-37.0) Red Cell Distribution Width 13.9% (12.3-15.4) Platelet Count 216bil/L (150-400) Neutrophils (%) (Auto) 85.0% (40-74) Lymphocytes (%) (Auto) 7.5% (14-46) Monocytes (%) (Auto) 6.4% (4-12) Eosinophils (%) (Auto) 0.7% (0-5) Basophils (%) (Auto) 0.1% (0-3) Sodium Level 140mEq/L (134-144) Potassium Level 4.1mEq/L (3.5-5.2) Chloride Level 105mEq/L (97-108) Carbon Dioxide Level 21mmol/L (18-29) Blood Urea Nitrogen 12mg/dL (8-27) Creatinine 0.78mg/dL (0.76-1.27) Estimat Glomerular Filtration Rate 108mL/min (>59) Glucose Level 156mg/dL (60-99) Calcium Level 9.8mg/dL (8.5-10.1) Magnesium Level 1.9mg/dL (1.6-2.6) Total Bilirubin 0.5mg/dL (0.0-1.2) Aspartate Amino Transf (AST/SGOT) 45U/L (0-50) Alanine Aminotransferase (ALT/SGPT) 35U/L (0-44) Alkaline Phosphatase 69U/L (25-160) Total Protein 7.6g/dL (6.4-8.4) Albumin 4.5g/dL (3.4-5.0) Lipase 31U/L (13-60) Hold [place] Top Tube Received (Received) Lab Results Interpretation: Elevated white count Re-Eval/Medical Decision Med Decision/Clinical Course 61-year-old male with a history of bipolar illness presents with hypomania. He does not meet any skilled nursing criteria. However he is very focused on his medical concerns and quite difficult to deal with because of that. He states he has had vomiting throughout the day. There is no evidence of dehydration. He did not vomit while here. His first request was for crackers and chocolate milk. His lab is unremarkable. [place] level is pending. Source of Hx: Old records Re-Evaluation/Progress : Time of Eval: 04:20 Patient Status: Condition improved Re-Evaluation/Progress Note: The patient requests discharge. Patient informed of lab results, diagnosis, and plan for discharge. Follow-up and return to the ER instructions given. Patient agrees with plan for care and all questions were addressed. Counseled Regarding: Diagnosis, Lab results, Need for follow-up, When/why to return to ED Discharge & Departure Impression: Primary Impression: Bipolar disease, manic Additional Impression: Vomiting Vomiting type: unspecified Vomiting Intractability: unspecified Nausea presence: unspecified Qualified Code: R11.10 - Vomiting, unspecified Disposition: Home Discharge Condition All VS Reviewed: Yes Condition: Improved Patient Instructions: Acute Nausea and Vomiting (ED) Additional Instructions: Your white blood count is elevated, likely from the infections causing the vomiting. I do not see any other significant abnormalities. Your lithium level is pending and we will call you if it needs to be adjusted. Referrals: Deanna Galdamez DO (PCP) [place] Attestation Portions of this note were transcribed by Diane Renteria. I, Dr. March, personally performed the history, physical exam, and medical decision-making; I reviewed and confirmed the accuracy of the information in the transcribed note. Signed by: Carrie Acosta, 10/02/2016, 04:55 copies to: Deanna Galdamez Howard L MD Oct 02, 2016 02:39 DIANE RENTERIA Oct 02, 2016 02:48
[2016-10-02] MEDS ORDERED: Ondansetron 8 mg ODT Tablet PO ONE (02:50)
[2016-10-02 03:29] LABS: BASOPHILS % (AUTO) 0.1 % (0-3); EOSINOPHILS % (AUTO) 0.7 % (0-5); MONOCYTES % (AUTO) 6.4 % (4-12); Mean Corpuscular Volume 90.8 fL (81-100); Platelet Count 216 bil/L (150-400)
[2016-10-02 04:00] LABS: Magnesium 1.9 mg/dL (1.6-2.6)
[2016-10-02] MEDS ORDERED: ONDA8TAB10 PO (04:26)
[2016-10-02 04:33] VITALS: BP 146/87; PULSE 112; RESP 20
== END 2016-10-02 04:32 | disposition home or self-care (01) ==
LOC: SED 01:32
DX: F31.9 Bipolar disorder, unspecified (principal); R11.10 Vomiting, unspecified; K21.9 Gastro-esophageal reflux disease without esophagitis; F17.200 Nicotine dependence, unspecified, uncomplicated; Z79.899 Other long term (current) drug therapy

== ENCOUNTER 2016-10-03 05:58 | Emergency (ER) | payer OTHER, MEDICARE ==
[~2016-10-03] VITALS: Ht 185.4 cm; Wt 87.7 kg
[~2016-10-03 05:58] MED LIST changes: +ONDA8TAB10 PO
--- NOTE | 2016-10-03 06:03 | ED.REPORT ---
HPI-Dyspnea / Wheezing Date of Service Oct 03, 2016 ED Provider: Shade Johnson DO Patient is a 61 year old male with a history of bipolar disorder who presents to the ED complaining of dyspnea onset 0330. The patient reports that he was laying down, woke up and felt like "his lungs were filling with fluid". He coughed a few times and then his symptoms resolved. Patient also states that he has allergies and has had nasal congestion with drainage. He states that he has the beginning stages of emphysema and that he has a family history of it. He reports that he plans to go to his physical therapy appointment at 0800 this morning. Patient was seen at 0237 yesterday morning complaining that he had been vomiting. At this time, patient does not complain of vomiting. Nursing Notes Stated Complaint: TROUBLE BREATHING Nursing Notes Reviewed: Yes Allergies: Coded Allergies: No Known Allergies (Unverified , 10/02/16) Scheduled ([Therapeutic Multivit/Minerals]) 1 TABLET TABLET 1 TABLET PO DAILY Ledipasvir/Sofosbuvir (Harvoni 90-400 mg Tablet) 1 Each Tablet 1 EACH PO DAILY [place] Carbonate ([place] Carbonate XR) 450 Mg Tablet.er 900 MG PO DAILY Olanzapine (Olanzapine) 5 Mg Tablet 5 MG PO HS [place]-3 Acid Ethyl Esters (Lovaza) 1 Gm Capsule 1 GM PO DAILY Scheduled PRN Hydroxyzine Pamoate (HydrOXYzine Pamoate) 50 Mg Capsule 50 MG PO TID PRN PRN For Anxiety or Agitation Hyoscyamine SL (Hyoscyamine SL) 0.125 Mg Subl 0.125 MG SL Q4H PRN PRN For Moderate Pain Naloxone HCl (Narcan) 4 Mg/Actuation [place] 4 MG NS ONCE PRN PRN For Opiate Reversal Ondansetron ODT (Ondansetron ODT) 8 Mg Tab.rapdis 8 MG PO QID PRN PRN For Nausea Zolpidem (Ambien) 5 Mg Tablet 10 MG PO HS@22 PRN PRN Insomnia General Time Seen by MD: 06:20 Chief Complaint Shortness of breath Hx Obtained From: Patient Arrived By: Walk-in Sudden in Onset?: Yes Onset Occurred: 1 - 4 hours ago Severity: Current: No pain currently Associated with: Reports: Cough Recent Healthcare: No recent hospitalization, Recent doctor visit Past Medical History Past Medical History Notes: Patient admitted for mild lithium toxicity in November 07, 2015 Past Medical History Bipolar h/o prior lithum OD h/o chronic abdominal pain (last ED w/u including neg Abd CT in 2012) GERD Negative Nuclear Cardiac Stress Test 2011 Past Surgical History Cataract Surgery Smoking History Current Every Day Smoker Social History Alcohol Use: In recovery Drug Use: THC Other Social History: Frequent ED visitor, , Local resident Ambulatory Status Independent Review of Systems Constitutional: Denies: Chills Ears / Nose / Throat: Reports: Nasal congestion, Sinus problem Respiratory: Reports: Non-productive cough, Shortness of breath, Denies: Wheezing Allergy / Immune: Reports: Rhinorrhea Complete sys rev & neg: except as marked. Physical Exam Initial Vital Signs Vital Signs (First) Date Time Temp Pulse Resp B/P Pulse Ox O2 Delivery O2 Flow Rate FiO2 10/03/16 06:22 37.5 99 22 174/95 98 Room Air Initial VS: Reviewed General/Constitutional: Awake, Alert Neck: Atraumatic, Supple, Full range of motion Respiratory / Chest: Atraumatic, Breath sounds NL, Breath sounds = bilat, No respiratory distress Cardiovascular: Heart rate NL, Regular rhythm, Heart sounds NL Skin: Atraumatic, Color NL, No rash, Warm, Dry Neurologic: Oriented X3, Speech NL, No motor deficits, No sensory deficits Head / Eyes: Atraumatic, Normocephalic, PERRL, EOMI Psychiatric: Affect NL, Mood NL mild pressured speech focused and not tangential Interpretation & Diagnostics ECG Interpretation ECG Interpretation: sinus tachycardia, rate 101 Time: 06:49 Interpreted by: ED physician X-Ray Chest Interpretation Chest Xray Interpretation: no acute findings View: Portable, 1 view Interpretation / Wet Read by: Wet read ED physician Re-Eval/Medical Decision Med Decision/Clinical Course Symptoms are overall nonspecific do not sound cardiogenic in nature, chest x-ray is clear no evidence of pneumonia, maybe postnasal drainage, labs were reviewed from yesterday. Patient is well-appearing and in no distress. Stable for discharge. Return and follow-up precautions given Re-Evaluation/Progress : Time of Eval: 06:58 Re-Evaluation/Progress Note: Discussed results and plan for discharge. Patient understands and agrees to the plan. All questions were addressed. Counseled Regarding: Diagnosis, Lab results, Need for follow-up, When/why to return to ED Discharge & Departure Impression: Primary Impression: Dyspnea Dyspnea type: shortness of breath Qualified Code: R06.02 - Shortness of breath Disposition: Home Discharge Condition All VS Reviewed: Yes Condition: Stable Additional Instructions: Your chest x-ray and EKG are reassuring. There is no evidence of pneumonia. You should stop smoking. Follow-up with your regular doctor. You can try using [id number] allergy medication such as loratidine to help with your symptoms Return to the ER as needed for concerning signs or symptoms. Referrals: Deanna Galdamez DO (PCP) Scribe Attestation Portions of this note were transcribed by Felipa Santo. I, Dr. Jin Marcus personally performed the history, physical exam and medical decision-making; I reviewed and confirmed the accuracy of the information in the transcribed note. Signed by: [Scribe first and last name], Carrie, 10/03/16 and 0615. copies to: Deanna Galdamez Timothy S DO Oct 03, 2016 06:03 Lenore Santo Oct 03, 2016 06:10
[2016-10-03 06:22] VITALS: BP 174/95; PULSE 99; RESP 22; O2SAT 98
[2016-10-03 07:02] VITALS: BP 168/89; PULSE 88; RESP 18; O2SAT 98
--- NOTE | 2016-10-03 09:01 | DRSVH ---
PROCEDURE: X-RAY CHEST, TWO VIEWS ([id number]) INDICATIONS: cough TECHNIQUE: 2 views of the chest were acquired. COMPARISON: [facility], CR, CHEST 2VW, 07/13/2014, 16:58. FINDINGS: Surgical changes and devices: None. Lungs and pleura: No pleural effusions or pneumothorax. Lungs are clear. Mediastinum: Mediastinal contours are normal. Heart size is normal. Bones and chest wall: No suspicious bony abnormalities. Soft tissues appear unremarkable. IMPRESSION: No acute cardiopulmonary disease. Dictated by: Alberto Melendez [facility] Interpreted: French Martinez MD on 10/03/2016 at 8:59 Transcribed by: DANIELLE on 10/03/2016 at 9:00 Approved by: French Martinez M.D. on 10/03/2016 at 11:28
== END 2016-10-03 07:05 | disposition home or self-care (01) ==
LOC: SED 05:58
DX: R06.00 Dyspnea, unspecified (principal); K21.9 Gastro-esophageal reflux disease without esophagitis; F17.200 Nicotine dependence, unspecified, uncomplicated; Z79.899 Other long term (current) drug therapy

== ENCOUNTER 2016-10-19 07:50 | Emergency (ER) | payer OTHER, MEDICARE ==
[~2016-10-19] VITALS: Ht 185.4 cm; Wt 86.0 kg
[2016-10-19 07:54] VITALS: BP 160/113; PULSE 90; RESP 12; O2SAT 96
--- NOTE | 2016-10-19 08:05 | ED.REPORT ---
HPI-Back Pain 40 and Over Date of Service Oct 19, 2016 ED Provider: Andrew Che MD Pt is a 61 year old male with a history of COPD and bipolar disorder who presents to the ED via EMS complaining of worsening and non-radiating lumbar back pain onset 12 hours ago. He c/o associated stress and insomnia onset 4 days ago. He denies suicidal and homicidal ideations, and any other symptoms. The pt reports that he took Ibuprofen and methocarbamol at 03:00 with no relief. Per pt, he has been experiencing stress due to being in the process of his and selling his house. The pt normally takes lithium for his bipolar disorder, but reports that he was unable to obtain it. He last took [place] yesterday morning. Nursing Notes Stated Complaint: BACK PAIN Chief Complaint: Back Pain or Injury Nursing Notes Reviewed: Yes ([employer], meds not reconciled) Allergies: Coded Allergies: No Known Allergies (Unverified , 10/19/16) Scheduled ([Therapeutic Multivit/Minerals]) 1 TABLET TABLET 1 TABLET PO DAILY Ledipasvir/Sofosbuvir (Harvoni 90-400 mg Tablet) 1 Each Tablet 1 EACH PO DAILY [place] Carbonate ([place] Carbonate XR) 450 Mg Tablet.er 900 MG PO DAILY Olanzapine (Olanzapine) 5 Mg Tablet 5 MG PO HS [place]-3 Acid Ethyl Esters (Lovaza) 1 Gm Capsule 1 GM PO DAILY Scheduled PRN Hydroxyzine Pamoate (HydrOXYzine Pamoate) 50 Mg Capsule 50 MG PO TID PRN PRN For Anxiety or Agitation Hyoscyamine SL (Hyoscyamine SL) 0.125 Mg Subl 0.125 MG SL Q4H PRN PRN For Moderate Pain Metaxalone (Skelaxin) 800 Mg Tablet 800 MG PO 3-4 times/day PRN PRN back pain Naloxone HCl (Narcan) 4 Mg/Actuation [place] 4 MG NS ONCE PRN PRN For Opiate Reversal Ondansetron ODT (Ondansetron ODT) 8 Mg Tab.rapdis 8 MG PO QID PRN PRN For Nausea Zolpidem (Ambien) 5 Mg Tablet 10 MG PO HS@22 PRN PRN Insomnia General Time Seen by MD: 07:52 Chief Complaint Back pain Hx Obtained From: Patient Arrived By: Ambulance Sudden in Onset?: No Onset Occurred: 9 - 12 hours ago Symptom Duration: Since onset Quality: Painful Severity: Current: Moderate Severity: Maximum: Moderate Recent Healthcare: Recent doctor visit Similar Sx Previous: No Past Medical History Past Medical History Notes: Patient admitted for mild lithium toxicity in November 07, 2015 Multiple ED visits Past Medical History Bipolar (last admit to care center 05/2016 for SI, hypomania) On lithium. Negative Nuclear Cardiac Stress Test 2011 Anxiety Depression Reports: COPD, GERD, Denies: Congestive heart failure, Diabetes mellitus, Hypertension Past Surgical History Cataract Surgery Smoking History Former Smoker (40 yr cessation) Social History Former heroin user In process of - 10/19/16 Alcohol Use: In recovery Drug Use: THC Other Social History: Frequent ED visitor, Local resident Ambulatory Status Independent Review of Systems Constitutional: Denies: Fever Respiratory: Denies: Non-productive cough, Shortness of breath Musculoskeletal: Reports: Back pain Complete sys rev & neg: except as marked. Psychiatric: Reports: Insomnia, Stress, Denies: Homicidal ideation, Suicidal ideation Physical Exam Initial Vital Signs Vital Signs (First) Date Time Temp Pulse Resp B/P Pulse Ox O2 Delivery O2 Flow Rate FiO2 10/19/16 07:54 37.2 90 12 160/113 96 Room Air Initial VS: Reviewed, Vital signs normal (HTN) Head / Eyes: Atraumatic, Normocephalic Neck: Supple, Full range of motion Extremities: Vascular intact, Neuro intact Skin: Warm, Dry, No cyanosis Psychiatric: Mood/affect normal, Behavior normal General/Constitutional: Awake, Alert, Cooperative Generally well-appearing. No physical discomfort. Respiratory / Chest: Atraumatic, Breath sounds NL, Breath sounds = bilat Cardiovascular: Heart rate NL, Regular rhythm, Heart sounds NL Abdomen: Atraumatic, Soft, Non-tender Back: Atraumatic, Full range of motion Neurologic: Oriented X3, Speech NL, No motor deficits, No sensory deficits Able to get up and walk. Rapid and slightly pressured speech. Disorganized. Abnormal Mood/Affect: Positive: Anxious, Pressured speech (mild) Abnormal Thinking / Perception: Positive: Insight abnormal, Judgment abnormal, Negative: Delusions - paranoid, Hallucinations, auditory, Hallucinations, tactile, Hallucinations, visual, Homicidal, no plan, Homicidal, with plan, Suicidal, no plan, Suicidal, with plan PSYCHIATRIC: Denies suicidality and homicidality. Limited insight and poor judgement. Slightly pressured speech, describes insomnia Re-Eval/Medical Decision Med Decision/Clinical Course This is a 61-year-old male with a history of bipolar who presents with the chief complaint listed as back pain. He reports back soreness starting yesterday this morning, unrelieved by ibuprofen and he wants some pain medicine for. He reports he took some methocarbamol but it did not help. He denies any recent trauma, denies numbness, weakness, bowel or bladder dysfunction, and has no red flags for need for emergent imaging. In fact the patient called EMS, but clinically appears well-is up and about moving with occasional twinge of mild discomfort, but is generally quite functional. However while his focuses on his back pain, is quite noticeable the patient has somewhat pressured speech , somewhat disorganized, describes several days of worsening insomnia, and as features concerning for early manic phase of bipolar illness. He denies suicidal or homicidal ideology-and he does not think he is truly manic. Records indicate a multitude a recent ED visits, he has also been seen by his PCP and nose records were obtained-his PCP has been working diligently to try and get him in for psychiatric care, and the patient told me that he does have plans to see "some psychiatrists, but does not know the name, when, where the appointment is. With the help of the MESS ATTENDANT CREW, we are able to determine that this is an appointment with Dr. Marilyn Louise at [facility] and is currently scheduled for November 30 at 2:15 PM, and this that is when this psychiatrists beginning practice, there is no way to expedite that appointment. Patient is on lithium, but missed yesterday's note saying he has a prescription but has not filled it. He received this morning's dose of lithium. He has had recent lithium level drawn at the clinic, so it is not repeated today. His records from next chin indicates that he is supposed to be on Zyprexa, but he tells me he is not taking it. He was offered Zyprexa and the department, but declined it. He did receive Tylenol and dose of Skelaxin for his back pain. I am not finding any red flags or need for emergent neuro imaging. The patient is no history of drug or substance abuse. The patient has moderate hypertension on arrival, this improved without intervention. His abdomen is soft nontender with no pulsatile mass. There are no findings to suggest AAA. The patient had a normal abdominal ultrasound including a normal caliber aorta May 2016, so there is no indication for additional repeat imaging. His back pain is identical to what he has had previously, it is mechanical in character. While the patient does have mild landon, he has intact decision capacity and neither myself nor the MESS ATTENDANT CREW find features to indicate the patient requires emergent psychiatric hospitalization represents an imminent harm to himself or others at this time, but were trying to do every intervention help prevent that from becoming necessary. The patient tells me he will take his lithium. He does not agree at this time to take the Zyprexa indicating that it causes drowsiness-I have suggested he take it, but that he taken in the evening when he goes to bed. He indicates he will consider this. Patient wishes is to go home. He has been seen by MESS ATTENDANT CREW. In terms of his back pain I will discharge him on some Tylenol, ibuprofen, and some when necessary Skelaxin. The patient is discharged in stable condition. Source of Hx: Old records, EMS Re-Evaluation/Progress : Time of Eval: 10:27 Re-Evaluation/Progress Note: Pt rechecked. Informed pt of plan for discharge. Pt understands and agrees with plan for discharge. F/U instructions and RTER warnings given. All questions addressed. Differential Diagnosis: Positive: Musculoskeletal pain, Negative: Abdominal aortic aneurysm, , Aortic dissection, Cauda equina syndrome, Ectopic , Epidural abscess, Epidural hematoma, Fracture, Neoplasm, Osteomyelitis, Pancreatitis Counseled Regarding: Diagnosis, Need for follow-up, When/why to return to ED Discharge & Departure Impression: Primary Impression: Low back pain Chronicity: acute Back pain laterality: midline Sciatica presence: without sciatica Qualified Code: M54.5 - Low back pain Additional Impression: Bipolar 1 disorder with moderate landon Disposition: Home Discharge Condition All VS Reviewed: Yes Condition: Stable Additional Instructions: 1. For your back pain, no heavy lifting, but other activities as tolerated. As discussed we want you up and about rather than bed rest (as recommended in years past) as studies have indicates symptoms resolve faster with return to activities. 2. I do recommend continuing ibuprofen 400-800mg three times a day for pain as needed. 3. Take metaxalone (skelaxin) 800mg 3-4 times/day as needed for pain. NOTE: Causes some drowsiness. 4. Take tylenol 1000mg up to three times a day for pain as well. (This dose is safe fo your liver). 5. I am concerned that your bipolar illness is causing some mild landon. Your speech is slightly pressured, your thoughts are slightly disorganized, and you describe insomnia that is related. Make sure you bead picker your prescription and take your lithium (you received your morning dose today). 6. Your doctor's records indicate that they recommend that you also be on Zyprexa. You declined this in the ED, but I do recommend you take it (you could take it in the evening) 7. Your appointment with your new psychiatrist is with Dr. Estephania Louise at [facility] on November 30 at 14:15 (2:15pm). 8. Follow up with Dr. Galdamez. Referrals: Deanna Galdamez DO (PCP) Carrie Attestation Portions of this note were transcribed by Ynes Gutierrez. I, Dr. Che personally performed the history, physical exam and medical decision-making; I reviewed and confirmed the accuracy of the information in the transcribed note. Signed by: Carrie Carter, 10/19/16 and 10:50. copies to: Deanna Galdamez Matthew F MD Oct 19, 2016 08:05 Ynes Ramsey Oct 19, 2016 08:19
[2016-10-19] MEDS ORDERED: OLANZapine Zydis ODT 5 mg Tablet PO ONE (09:20)
[2016-10-19] MEDS ORDERED: META800T16 PO (10:35)
== END 2016-10-19 11:09 | disposition home or self-care (01) ==
LOC: SED 07:50
DX: M54.5 Low back pain (principal); F31.9 Bipolar disorder, unspecified; K21.9 Gastro-esophageal reflux disease without esophagitis; Z87.891 Personal history of nicotine dependence; J44.9 Chronic obstructive pulmonary disease, unspecified; G47.00 Insomnia, unspecified

== ENCOUNTER 2016-10-21 22:48 | Emergency (ER) | payer OTHER, MEDICARE ==
[~2016-10-21] VITALS: Ht 185.4 cm; Wt 88.1 kg
[~2016-10-21 22:48] MED LIST changes: +META800T16 PO
[2016-10-21 22:51] VITALS: BP 195/128; PULSE 100; RESP 20; O2SAT 97
--- NOTE | 2016-10-21 23:13 | ED.REPORT ---
HPI-Psychiatric Illness Date of Service Oct 21, 2016 ED Provider: Dr. Jose David Fierro The patient is a 61 year old male with a medical history including bipolar disorder, COPD, anxiety,and multiple ED visits who presents to the ED c/o insomnia and hallucinations. He denies suicidal ideation. The pt normally takes 900 mg lithium (450 mg 2x/day) for his bipolar disorder. He was seen 2 days ago at [facility] for lumbar back pain and was observed to be hypomanic during his visit. SOCIAL WELFARE ADMINISTRATOR was consulted. He has an appointment to see Dr. Louise at [facility] on November 30. Nursing Notes Stated Complaint: NO SLEEP, HALLUCINATIONS Chief Complaint: Psychiatric Complaint Nursing Notes Reviewed: Yes Allergies: Coded Allergies: No Known Allergies (Unverified , 10/21/16) Scheduled ([Therapeutic Multivit/Minerals]) 1 TABLET TABLET 1 TABLET PO DAILY Ledipasvir/Sofosbuvir (Harvoni 90-400 mg Tablet) 1 Each Tablet 1 EACH PO DAILY [place] Carbonate ([place] Carbonate XR) 450 Mg Tablet.er 900 MG PO DAILY Methocarbamol (Methocarbamol) 500 Mg Tablet 500 MG PO TID Olanzapine (Olanzapine) 5 Mg Tablet 5 MG PO HS [place]-3 Acid Ethyl Esters (Lovaza) 1 Gm Capsule 1 GM PO DAILY Scheduled PRN Hydroxyzine Pamoate (HydrOXYzine Pamoate) 50 Mg Capsule 50 MG PO TID PRN PRN For Anxiety or Agitation Hyoscyamine SL (Hyoscyamine SL) 0.125 Mg Subl 0.125 MG SL Q4H PRN PRN For Moderate Pain Metaxalone (Skelaxin) 800 Mg Tablet 800 MG PO 3-4 times/day PRN PRN back pain Naloxone HCl (Narcan) 4 Mg/Actuation [place] 4 MG NS ONCE PRN PRN For Opiate Reversal Ondansetron ODT (Ondansetron ODT) 8 Mg Tab.rapdis 8 MG PO QID PRN PRN For Nausea Zolpidem (Ambien) 5 Mg Tablet 10 MG PO HS@22 PRN PRN Insomnia General Time Seen by MD: 23:13 Chief Complaint Hallucinations, auditory Hx Obtained From: Patient Arrived By: Walk-in Onset Occurred: Yesterday Symptom Duration: Since onset Recent Healthcare: Recent doctor visit Similar Sx Previous: Yes Risk-Psychiatric Illness Suicide Risk Stratification RF Statements: Risk factors reviewed Past Medical History Past Medical History Notes: Patient admitted for mild lithium toxicity in November 07, 2015 Multiple ED visits Past Medical History Bipolar (last admit to care center 05/2016 for SI, hypomania) On lithium. Negative Nuclear Cardiac Stress Test 2011 Anxiety Depression Reports: COPD, GERD Past Surgical History Cataract Surgery Smoking History Former Smoker Social History Former heroin user In process of - 10/19/16 Alcohol Use: In recovery Drug Use: THC Other Social History: Frequent ED visitor, Local resident Ambulatory Status Independent Review of Systems Review of Systems Note: insomnia pressured speech GI: Denies: Nausea, Vomiting Psychiatric: Reports: Hallucinations, auditory, Stress, Denies: Suicidal ideation Complete sys rev & neg: except as marked. Physical Exam Initial Vital Signs Vital Signs (First) Date Time Temp Pulse Resp B/P Pulse Ox O2 Delivery O2 Flow Rate FiO2 10/21/16 22:51 100 20 195/128 97 Room Air Initial VS: Reviewed General/Constitutional: Awake, Alert, Cooperative Neurologic: No motor deficits, No sensory deficits Psychiatric: Not suicidal Abnormal Thinking / Perception: Positive: Tangential thinking rapid, pressured speech insomnia Head / Eyes: Atraumatic, Normocephalic, PERRL, EOMI Respiratory / Chest: Atraumatic, Breath sounds NL, Breath sounds = bilat, No respiratory distress Cardiovascular: Heart rate NL, Regular rhythm, Heart sounds NL Abdomen: Atraumatic, Soft, Non-tender Skin: Atraumatic, No rash Upper Extremity / MS: Atraumatic, Inspection NL, Full range of motion Lower Extremity / Pelvis / MS: Atraumatic, Inspection NL, Full range of motion Interpretation & Diagnostics Lab Results Interpretation Result Diagram: 10/22/16 0104 10/22/16 0104 Test 10/22/16 01:04 White Blood Count 11.0th/mm3 (3.8-10.1) Red Blood Count 4.89mil/mm3 (4.40-5.80) Hemoglobin 15.4g/dL (13.8-17.2) Hematocrit 43.6% (41.0-50.0) Mean Corpuscular Volume 89.2fL (81-100) Mean Corpuscular Hemoglobin 31.5pg (27.0-35.0) Mean Corpuscular Hemoglobin Concent 35.3% (32.0-37.0) Red Cell Distribution Width 13.4% (12.3-15.4) Platelet Count 211bil/L (150-400) Neutrophils (%) (Auto) 62.7% (40-74) Lymphocytes (%) (Auto) 27.9% (14-46) Monocytes (%) (Auto) 7.5% (4-12) Eosinophils (%) (Auto) 1.5% (0-5) Basophils (%) (Auto) 0.1% (0-3) Sodium Level 138mEq/L (134-144) Potassium Level 3.8mEq/L (3.5-5.2) Chloride Level 101mEq/L (97-108) Carbon Dioxide Level 21mmol/L (18-29) Blood Urea Nitrogen 8mg/dL (8-27) Creatinine 0.76mg/dL (0.76-1.27) Estimat Glomerular Filtration Rate 111mL/min (>59) Glucose Level 168mg/dL (60-99) Calcium Level 9.5mg/dL (8.5-10.1) Total Bilirubin 0.3mg/dL (0.0-1.2) Aspartate Amino Transf (AST/SGOT) 33U/L (0-50) Alanine Aminotransferase (ALT/SGPT) 21U/L (0-44) Alkaline Phosphatase 72U/L (25-160) Total Protein 7.0g/dL (6.4-8.4) Albumin 4.3g/dL (3.4-5.0) Hold [place] Top Tube Received (Received) [place] Level 0.1mEq/L (0.5-1.5) Alcohols < 10mg/dL (0-10) Re-Eval/Medical Decision Med Decision/Clinical Course 0000: Plan for valium and lithium 900mg. Pt denies suicidal ideation. 0026: Per nurse, the pt is refusing to take his medication because he has court in the morning and doesn't wants to be somnolent for his appointment. 0035: Pt agrees to take his medication. Pt is acutely manic and he may be too disabled to be at home. He is happy to stay here for the night and wait for social science professor consult in the morning. If all is well after he rests, he will be discharged. Re-Evaluation/Progress #1: Time of Eval: 00:00 Re-Evaluation/Progress Note: Plan for valium and lithium 900 mg. Pt denies suicidal ideation. Re-Evaluation/Progress #2: Time of Eval: 00:26 Re-Evaluation/Progress Note: Per nurse, the pt is refusing to take his medication because he has court in the morning and doesn't wants to be somnolent for his appointment. Re-Evaluation/Progress #3: Time of Eval: 00:30 Re-Evaluation/Progress Note: Pt agrees to take his medication. Pt is acutely manic and he may be too disabled to be at home. He is happy to stay here for the night and wait for social science professor consult in the morning. If all is well after he rests, he will be discharged. Counseled Regarding: Diagnosis, Lab results, Need for follow-up, When/why to return to ED Discharge & Departure Shift Change Sign-Out Patient Care Transferred: Yes Discussed Complaint(s): Yes Laboratory Evaluation: Back, reviewed by me Input from Consult: SOCIAL WELFARE ADMINISTRATOR consultation Response to Therapy: Improved Impression: Primary Impression: Bipolar disorder with severe landon Additional Impression: Insomnia Insomnia type: due to other mental disorder Qualified Code: F51.05 - Insomnia due to other mental disorder )( Condition at Discharge: No suicidal ideation Disposition: Home Discharge Condition All VS Reviewed: Yes Condition: Stable Patient Instructions: Bipolar Disorder (ED) Additional Instructions: Thank you for entrusting us with your care today. Follow up with your primary care physician as needed. Keep your appointment with [facility] on November 30. Continue to take your medication as directed. Do not hesitate to return to the Emergency Department if you have any thoughts of harming yourself or others, or any new or worsening symptoms. We are always here to help. Referrals: Deanna Galdamez DO (PCP) Scribe Attestation Portion of this note were transcribed by Cassandra Garcia. I, Dr. Fierro, personally performed the history, physical exam, and medical decision-making: I reviewed and confirmed the accuracy for the information in the transcribed note. Signed by: anay Novak, 10/22/16 0030 copies to: Deanna Galdamez Todd P DO Oct 21, 2016 23:13 Cassandra Garcia Oct 21, 2016 23:41
[2016-10-21] MEDS ORDERED: ROB500 PO (23:25)
[2016-10-22 01:07] LABS: BASOPHILS % (AUTO) 0.1 % (0-3); EOSINOPHILS % (AUTO) 1.5 % (0-5); MONOCYTES % (AUTO) 7.5 % (4-12); Mean Corpuscular Hemoglobin 31.5 pg (27.0-35.0); Mean Corpuscular Volume 89.2 fL (81-100); NEUTROPHILS % (AUTO) 62.7 % (40-74); Platelet Count 211 bil/L (150-400)
[2016-10-22 04:28] VITALS: BP 165/100; PULSE 99; RESP 18; O2SAT 97
== END 2016-10-22 04:31 | disposition home or self-care (01) ==
LOC: SED 22:48
DX: F31.13 Bipolar disorder, current episode manic without psychotic features, severe (principal); F51.05 Insomnia due to other mental disorder; J44.9 Chronic obstructive pulmonary disease, unspecified; F41.9 Anxiety disorder, unspecified; K21.9 Gastro-esophageal reflux disease without esophagitis; Z87.891 Personal history of nicotine dependence
CPT/HCPCS: 36415; 80053; 80178; 81002; 82075; 85025; 99284; G0480

== ENCOUNTER 2016-10-27 21:27 | Emergency (ER) | payer OTHER, MEDICARE ==
[~2016-10-27 21:27] MED LIST changes: +ROB500 PO
[2016-10-27 21:52] VITALS: BP 186/110; PULSE 96; RESP 16; O2SAT 98
--- NOTE | 2016-10-28 00:15 | ED.REPORT ---
HPI-Psychiatric Illness Date of Service Oct 28, 2016 ED Provider: Dashawn March MD The pt is a 61 y/o male w/ a hx of bipolar disorder presenting to the ED via EMS due to running out of his Xanax medication. He also reports feeling fatigued. He is no longer on chronic Xanax. He last had a dose of lithium last night but was w/o it for the 6 days prior to that. But he is going to fill a prescription for more from [facility] after he leaves the ED. He reports allowing his family to stay in his home but they began to overstay their welcome which is causing him to become uncomfortable. He is also in the middle of a divorce w/ his and had a restraining order put on his son 10 days ago. The pt was in the ED 7 days ago due to him being unable to sleep for 5 days. He is a somewhat poor historian due to his flight of ideas. ' Nursing Notes Stated Complaint: MENTAL HEALTH EVAL Chief Complaint: Psychiatric Complaint Nursing Notes Reviewed: Yes Allergies: Coded Allergies: No Known Allergies (Unverified , 10/21/16) Scheduled ([Therapeutic Multivit/Minerals]) 1 TABLET TABLET 1 TABLET PO DAILY Ledipasvir/Sofosbuvir (Harvoni 90-400 mg Tablet) 1 Each Tablet 1 EACH PO DAILY [place] Carbonate ([place] Carbonate XR) 450 Mg Tablet.er 900 MG PO DAILY Methocarbamol (Methocarbamol) 500 Mg Tablet 500 MG PO TID Olanzapine (Olanzapine) 5 Mg Tablet 5 MG PO HS [place]-3 Acid Ethyl Esters (Lovaza) 1 Gm Capsule 1 GM PO DAILY Scheduled PRN Hydroxyzine Pamoate (HydrOXYzine Pamoate) 50 Mg Capsule 50 MG PO TID PRN PRN For Anxiety or Agitation Hyoscyamine SL (Hyoscyamine SL) 0.125 Mg Subl 0.125 MG SL Q4H PRN PRN For Moderate Pain Metaxalone (Skelaxin) 800 Mg Tablet 800 MG PO 3-4 times/day PRN PRN back pain Naloxone HCl (Narcan) 4 Mg/Actuation [place] 4 MG NS ONCE PRN PRN For Opiate Reversal Ondansetron ODT (Ondansetron ODT) 8 Mg Tab.rapdis 8 MG PO QID PRN PRN For Nausea Zolpidem (Ambien) 5 Mg Tablet 10 MG PO HS@22 PRN PRN Insomnia General Time Seen by MD: 00:14 Chief Complaint Other (Xanax refill ) Hx Obtained From: Patient Arrived By: Ambulance Onset Occurred: Just prior to arrival Symptom Duration: Since onset Recent Healthcare: No recent hospitalization, Recent doctor visit Similar Sx Previous: Yes Risk-Psychiatric Illness Suicide Risk Stratification RF Statements: No risk factors Past Medical History Past Medical History Notes: Patient admitted for mild lithium toxicity in November 07, 2015 Multiple ED visits Past Medical History Bipolar (last admit to care center 05/2016 for SI, hypomania) On lithium. Negative Nuclear Cardiac Stress Test 2011 Anxiety Depression Reports: COPD, GERD Past Surgical History Cataract Surgery Smoking History Former Smoker Social History Former heroin user In process of - 10/19/16 Alcohol Use: In recovery Drug Use: THC Other Social History: Frequent ED visitor, Local resident Ambulatory Status Independent Review of Systems Constitutional: Reports: Fatigue Psychiatric: Reports: Change mental status Complete sys rev & neg: except as marked. Physical Exam Initial Vital Signs Vital Signs (First) Date Time Temp Pulse Resp B/P Pulse Ox O2 Delivery O2 Flow Rate FiO2 10/27/16 21:52 37.3 96 16 186/110 98 Room Air Initial VS: Reviewed, Vital signs abnormal Head / Eyes: Atraumatic, Normocephalic, PERRL ENT: Mucous membranes moist, Conjunctiva normal, No scleral icterus Neck: Supple, Non-tender, Full range of motion Respiratory: Breath sounds normal, Clear to auscultation, No respiratory distress Cardiovascular: Regular rate & rhythm, Heart sounds normal, Intact distal pulses Extremities: Vascular intact, Neuro intact, No swelling, No tenderness Skin: Warm, Dry, No cyanosis General/Constitutional: Awake, Alert Neurologic: No motor deficits, No sensory deficits Psychiatric: Not suicidal, Not homicidal Tangential Flight of ideas Interpretation & Diagnostics Lab Results Interpretation Result Diagram: 10/28/16 0050 10/28/16 0050 Test 10/27/16 22:20 10/28/16 00:50 Hold Urine Received (Received) White Blood Count 8.3th/mm3 (3.8-10.1) Red Blood Count 4.74mil/mm3 (4.40-5.80) Hemoglobin 14.7g/dL (13.8-17.2) Hematocrit 43.0% (41.0-50.0) Mean Corpuscular Volume 90.7fL (81-100) Mean Corpuscular Hemoglobin 31.0pg (27.0-35.0) Mean Corpuscular Hemoglobin Concent 34.2% (32.0-37.0) Red Cell Distribution Width 13.4% (12.3-15.4) Platelet Count 191bil/L (150-400) Neutrophils (%) (Auto) 61.1% (40-74) Lymphocytes (%) (Auto) 27.1% (14-46) Monocytes (%) (Auto) 9.7% (4-12) Eosinophils (%) (Auto) 1.9% (0-5) Basophils (%) (Auto) 0.1% (0-3) Sodium Level 141mEq/L (134-144) Potassium Level 3.5mEq/L (3.5-5.2) Chloride Level 102mEq/L (97-108) Carbon Dioxide Level 26mmol/L (18-29) Blood Urea Nitrogen 11mg/dL (8-27) Creatinine 0.85mg/dL (0.76-1.27) Estimat Glomerular Filtration Rate 98mL/min (>59) Glucose Level 152mg/dL (60-99) Calcium Level 10.0mg/dL (8.5-10.1) Total Bilirubin 0.3mg/dL (0.0-1.2) Aspartate Amino Transf (AST/SGOT) 40U/L (0-50) Alanine Aminotransferase (ALT/SGPT) 26U/L (0-44) Alkaline Phosphatase 57U/L (25-160) Total Protein 7.0g/dL (6.4-8.4) Albumin 4.0g/dL (3.4-5.0) Thyroid Stimulating Hormone (TSH) 1.210uIU/mL (0.450-4.500) Hold [place] Top Tube Received (Received) [place] Level < 0.1mEq/L (0.5-1.5) Lab Results Interpretation: Low lithium level Re-Eval/Medical Decision Med Decision/Clinical Course 61-year-old male who has symptoms of hypomania. He does not specifically meet any group home criteria and does not desire to stay. He was given a dose of lithium now. He has his prescription at the pharmacy waiting to be picked up pending co-pay. He was also given a single dose of Xanax and denied an ongoing prescription. Re-Evaluation/Progress : Time of Eval: 01:30 Re-Evaluation/Progress Note: Pt rechecked. Informed pt of plan for treatment. Pt understands and agrees with plan for treatment. F/U instructions and RTER warnings given. All questions addressed. Counseled Regarding: Diagnosis, Lab results, Need for follow-up, When/why to return to ED Discharge & Departure Impression: Primary Impression: Bipolar disease, manic Discharge Condition All VS Reviewed: Yes Condition: No Change Patient Instructions: Bipolar Disorder (ED) Additional Instructions: I suspect that uses symptoms are due to you being unable to get your lithium. Your given a dose of lithium and a dose of Xanax for tonight. Get your prescription as planned and continue your medication as prescribed. Return if you have any problems. Referrals: Deanna Galdamez DO (PCP) [place] Attestation Portions of this note were transcribed by Lenin Maguire. I, Dr. March personally performed the history, physical exam and medical decision-making; I reviewed and confirmed the accuracy of the information in the transcribed note. Signed by : Carrie Jain, 10/28/16 and 0215. copies to: Deanna Galdamez Howard L MD Oct 28, 2016 00:15 Lenin Maguire Oct 28, 2016 02:13
[2016-10-28 01:05] LABS: BASOPHILS % (AUTO) 0.1 % (0-3); EOSINOPHILS % (AUTO) 1.9 % (0-5); MONOCYTES % (AUTO) 9.7 % (4-12); Mean Corpuscular Volume 90.7 fL (81-100); NEUTROPHILS % (AUTO) 61.1 % (40-74); Platelet Count 191 bil/L (150-400)
[2016-10-28] MEDS ORDERED: ALPRAZolam 0.5 mg Tablet PO ONE (01:25)
[2016-10-28 02:00] VITALS: BP 158/93; PULSE 94; RESP 16; O2SAT 96
== END 2016-10-28 02:01 | disposition home or self-care (01) ==
LOC: EDBD 21:27 → SED 21:27
DX: F31.9 Bipolar disorder, unspecified (principal); J44.9 Chronic obstructive pulmonary disease, unspecified; K21.9 Gastro-esophageal reflux disease without esophagitis; F11.21 Opioid dependence, in remission; Z87.891 Personal history of nicotine dependence

== ENCOUNTER 2016-11-02 18:47 | Emergency (ER) | payer OTHER, MEDICARE ==
[~2016-11-02] VITALS: Ht 185.4 cm; Wt 84.1 kg
[2016-11-02 18:59] VITALS: BP 192/119; PULSE 100; RESP 20; O2SAT 96
[2016-11-02 20:31] LABS: BASOPHILS % (AUTO) 0.1 % (0-3); EOSINOPHILS % (AUTO) 1.3 % (0-5); MONOCYTES % (AUTO) 8.6 % (4-12); Mean Corpuscular Hemoglobin 30.9 pg (27.0-35.0); Mean Corpuscular Volume 89.4 fL (81-100); NEUTROPHILS % (AUTO) 67.7 % (40-74); Platelet Count 193 bil/L (150-400)
--- NOTE | 2016-11-02 20:43 | ED.REPORT ---
HPI-Psychiatric Illness Date of Service Nov 02, 2016 ED Provider: Andrew Che MD A 61 year old male with a history of hypertension, bipolar disorder, anxiety, depression and COPD presents to the ED due to paranoia. Per pt's family, the pt is experiencing auditory and visual hallucinations and "wants to harm others." He has reportedly not slept in several days and "thinks the FBI is after him." In the ED, the pt states that there is nothing wrong with him and he does not know why he is here. He denies ever experiencing suicidal or homicidal ideation and states that he has been sleeping normally. The drinks daily and has not been taking any of his medications, including lithium and blood pressure medications, because he "doesn't need them." Nursing Notes Stated Complaint: PARANOID Chief Complaint: Psychiatric Complaint Nursing Notes Reviewed: Yes ([employer], [employer] not reconciled) Allergies: Coded Allergies: No Known Allergies (Unverified , 11/02/16) Scheduled ([Therapeutic Multivit/Minerals]) 1 TABLET TABLET 1 TABLET PO DAILY Ledipasvir/Sofosbuvir (Harvoni 90-400 mg Tablet) 1 Each Tablet 1 EACH PO DAILY [place] Carbonate ([place] Carbonate XR) 450 Mg Tablet.er 900 MG PO DAILY Methocarbamol (Methocarbamol) 500 Mg Tablet 500 MG PO TID Olanzapine (Olanzapine) 5 Mg Tablet 5 MG PO HS [place]-3 Acid Ethyl Esters (Lovaza) 1 Gm Capsule 1 GM PO DAILY Scheduled PRN Hydroxyzine Pamoate (HydrOXYzine Pamoate) 50 Mg Capsule 50 MG PO TID PRN PRN For Anxiety or Agitation Hyoscyamine SL (Hyoscyamine SL) 0.125 Mg Subl 0.125 MG SL Q4H PRN PRN For Moderate Pain Metaxalone (Skelaxin) 800 Mg Tablet 800 MG PO 3-4 times/day PRN PRN back pain Naloxone HCl (Narcan) 4 Mg/Actuation [place] 4 MG NS ONCE PRN PRN For Opiate Reversal Ondansetron ODT (Ondansetron ODT) 8 Mg Tab.rapdis 8 MG PO QID PRN PRN For Nausea Zolpidem (Ambien) 5 Mg Tablet 10 MG PO HS@22 PRN PRN Insomnia General Time Seen by MD: 20:40 Chief Complaint Paranoid Hx Obtained From: Patient, Other family... Arrived By: Walk-in Symptom Duration: Since onset Recent Healthcare: Recent doctor visit Similar Sx Previous: Yes Risk-Psychiatric Illness Suicide Risk Stratification Suicide Risk Factors - Adult: : Alcohol use: Prior psych admission RF Statements: Risk factors reviewed Past Medical History Past Medical History Notes: Patient admitted for mild lithium toxicity in November 07, 2015 Multiple ED visits (4 ED visits in past few weeks as of 10/2016) Past Medical History Bipolar (last admit to [facility] center 05/2016 for SI, hypomania) On lithium. Negative Nuclear Cardiac Stress Test 2011 Anxiety Depression Reports: COPD, GERD, Hypertension Past Surgical History Cataract Surgery Smoking History Former Smoker Social History Former heroin user In process of - 10/19/16 Alcohol Use: In recovery Drug Use: THC Other Social History: Frequent ED visitor, Local resident Ambulatory Status Independent Review of Systems Review of Systems Note: paranoid per family Respiratory: Denies: Non-productive cough, Shortness of breath Cardiovascular: Denies: Chest pain GI: Denies: Abdominal pain, Vomiting Skin: Denies Rash Psychiatric: Reports: Hallucinations, auditory (per family), Hallucinations, visual (per family), Homicidal ideation ("wants to harm others" per family, pt denies), Denies: Suicidal ideation Complete sys rev & neg: except as marked. Physical Exam Physical Exam Notes: hypertensive Initial Vital Signs Vital Signs (First) Date Time Temp Pulse Resp B/P Pulse Ox O2 Delivery O2 Flow Rate FiO2 11/02/16 18:59 37.0 100 20 192/119 96 Room Air Initial VS: Reviewed, Vital signs abnormal General/Constitutional: Awake, Alert no signs of intoxication or withdrawal Neurologic: Oriented X3, Speech NL, No motor deficits, No sensory deficits Psychiatric: Affect NL Abnormal Mood/Affect: Positive: Pressured speech Abnormal Thinking / Perception: Positive: Delusions - paranoid, Hallucinations , auditory, Hallucinations, visual complete lack of insight or judgement Head / Eyes: Atraumatic, Normocephalic, PERRL, EOMI ENT: Atraumatic, Airway patent, Mucous membranes moist Respiratory / Chest: Atraumatic, Breath sounds NL, Breath sounds = bilat, No respiratory distress Cardiovascular: Heart rate NL, Regular rhythm, Heart sounds NL Abdomen: Atraumatic, Soft, Non-tender Skin: Atraumatic, Color NL, No rash, Warm, Dry Neck: Atraumatic, Supple, Full range of motion Back: Atraumatic, Full range of motion Upper Extremity / MS: Atraumatic, Full range of motion Lower Extremity / Pelvis / MS: Atraumatic, Full range of motion Interpretation & Diagnostics Lab Results Interpretation Result Diagram: 11/02/16191611/02/161916 Test 11/02/16 19:17 11/02/16 23:56 White Blood Count 8.6th/mm3 (3.8-10.1) Red Blood Count 5.01mil/mm3 (4.40-5.80) Hemoglobin 15.5g/dL (13.8-17.2) Hematocrit 44.8% (41.0-50.0) Mean Corpuscular Volume 89.4fL (81-100) Mean Corpuscular Hemoglobin 30.9pg (27.0-35.0) Mean Corpuscular Hemoglobin Concent 34.6% (32.0-37.0) Red Cell Distribution Width 13.2% (12.3-15.4) Platelet Count 193bil/L (150-400) Neutrophils (%) (Auto) 67.7% (40-74) Lymphocytes (%) (Auto) 22.1% (14-46) Monocytes (%) (Auto) 8.6% (4-12) Eosinophils (%) (Auto) 1.3% (0-5) Basophils (%) (Auto) 0.1% (0-3) Sodium Level 140mEq/L (134-144) Potassium Level 3.3mEq/L (3.5-5.2) Chloride Level 104mEq/L (97-108) Carbon Dioxide Level 20mmol/L (18-29) Blood Urea Nitrogen 6mg/dL (8-27) Creatinine 0.68mg/dL (0.76-1.27) Estimat Glomerular Filtration Rate 126mL/min (>59) Glucose Level 110mg/dL (60-99) Calcium Level 9.9mg/dL (8.5-10.1) Total Bilirubin 0.4mg/dL (0.0-1.2) Aspartate Amino Transf (AST/SGOT) 83U/L (0-50) Alanine Aminotransferase (ALT/SGPT) 59U/L (0-44) Alkaline Phosphatase 66U/L (25-160) Total Protein 8.2g/dL (6.4-8.4) Albumin 4.6g/dL (3.4-5.0) Thyroid Stimulating Hormone (TSH) 0.679uIU/mL (0.450-4.500) Hold [place] Top Tube Received (Received) [place] Level < 0.1mEq/L (0.5-1.5) Hold Urine Received (Received) Lab Results Interpretation: CBC normal CMP normal Alcohol 0 U tox positive for TCAs TSH normal [place] level undetectable ECG Interpretation ECG Interpretation: normal sinus rhythm with a rate of 93 Time: 21:06 Interpreted by: ED physician Re-Eval/Medical Decision Med Decision/Clinical Course This is a 61-year-old male presents to the emergency department as I understand brought by family concern for increasing hallucinations, paranoia, and medication noncompliance. This with a fourth ED visit recent weeks, with concerns for developing increasing landon. I have she saw the patient several weeks ago, is mildly manic, but had some insight and reported compliance-now today is much worse than before, he has no insight, no judgment, and is paranoid -and sounds like has been noncompliant with his medications. He has a previous history of substance use, but denies any current or recent use. Tox screen was negative. Alcohol is negative. Blood work was normal. The patient requires constant redirection, and has no insight or judgment is intermittently entirely noncooperative. He can often be redirected however in further attempts 15 minutes later ago with resultant improvement in several also we needed blood work, EKG or urine test. The patient is not voluntary, does not understand why some hospital, does not wish to be cared for. However he appears clinically legally disabled, and imminent risk. Ultimately DCR's consult note, came and saw the patient and his RADHA'd the patient. Patient was significantly hypertensive on initial arrival, and review of his records indicates fairly significant hypertension and previous visits. He received a dose of lisinopril and hydrochlorothiazide. His blood pressures significantly improved on reevaluation. Not finding indication for hospitalization, EKG revealed no signs of acute cardiomyopathy, but the patient' s blood pressure should be followed as an outpatient. At this point the patient's being given an evening dose of lithium and olanzapine-which records indicate are his recommended medications. She was being transferred to [facility] for continued psychiatric care. Source of Hx: Old records Re-Evaluation/Progress : Time of Eval: 22:50 Re-Evaluation/Progress Note: Pt rechecked, who is stable. Pt has been detained by DCR. Consultation : Call Returned at: 22:45 Note: Spoke with DCR, who will RADHA the pt. Differential Diagnosis: Positive: Bipolar disorder, Noncompliance-medications, Negative: Homicidal, Schizophrenia Counseled Regarding: Diagnosis, Lab results, Need for admission Discharge & Departure Impression: Primary Impression: Bipolar disorder with severe landon Additional Impressions: Noncompliance with medication regimen Hypertension Disposition: ADMITTED TO HOSPITAL Discharge Condition All VS Reviewed: Yes Condition: Stable Referrals: Deanna Galdamez DO (PCP) Carrie Attestation Portions of this note were transcribed by Dusty Beltran. I, Dr. Che personally performed the history, physical exam and medical decision-making; I reviewed and confirmed the accuracy of the information in the transcribed note. Signed by: Carrie Eldridge, 11/03/2016 and 0238. copies to: Deanna Galdamez Matthew F MD Nov 02, 2016 20:43 DUSTY BELTRAN Nov 02, 2016 21:10
[2016-11-02 21:17] VITALS: BP 172/95; PULSE 98; RESP 18; O2SAT 97
[2016-11-03 00:08] VITALS: BP 164/93; PULSE 91
[2016-11-03] MEDS ORDERED: OLANZapine Zydis ODT 5 mg Tablet PO ONE (00:45)
[2016-11-03 01:54] VITALS: BP 150/89; PULSE 92; RESP 18; O2SAT 96
== END 2016-11-03 02:25 | disposition other institution (70) ==
LOC: SED 18:47
DX: F31.13 Bipolar disorder, current episode manic without psychotic features, severe (principal); I10 Essential (primary) hypertension; J44.9 Chronic obstructive pulmonary disease, unspecified; F41.9 Anxiety disorder, unspecified; Z91.14 Patient's other noncompliance with medication regimen; Z87.891 Personal history of nicotine dependence

== ENCOUNTER 2016-12-01 03:41 | Emergency (ER) | payer OTHER, MEDICARE ==
--- NOTE | 2016-12-01 03:44 | ED.REPORT ---
HPI-Psychiatric Illness Date of Service Dec 01, 2016 ED Provider: Dashawn March MD The pt is a 61 y/o male w/ a hx of bipolar disorder, anxiety, depression, COPD, and HTN presenting to the ED via EMS complaining of a sunburn. He reports using baby oil on the back of his neck 3 days ago and then spending an hour in the sun which caused his burn. He also reports running out of his [place] medication and has not taken any for the last two months. He is unable to mushroom picker his new medication refills because he does not have a car. The pt was last seen here in the ED a month ago for bipolar disorder w/ a severe manic episode. Nursing Notes Stated Complaint: SUNBURN/OUT OF MEDICATION Chief Complaint: Sunburn Nursing Notes Reviewed: Yes Allergies: Coded Allergies: No Known Allergies (Unverified , 11/02/16) Scheduled ([Therapeutic Multivit/Minerals]) 1 TABLET TABLET 1 TABLET PO DAILY Ledipasvir/Sofosbuvir (Harvoni 90-400 mg Tablet) 1 Each Tablet 1 EACH PO DAILY [place] Carbonate ([place] Carbonate XR) 450 Mg Tablet.er 900 MG PO DAILY Methocarbamol (Methocarbamol) 500 Mg Tablet 500 MG PO TID Olanzapine (Olanzapine) 5 Mg Tablet 5 MG PO HS [place]-3 Acid Ethyl Esters (Lovaza) 1 Gm Capsule 1 GM PO DAILY Scheduled PRN Hydroxyzine Pamoate (HydrOXYzine Pamoate) 50 Mg Capsule 50 MG PO TID PRN PRN For Anxiety or Agitation Hyoscyamine SL (Hyoscyamine SL) 0.125 Mg Subl 0.125 MG SL Q4H PRN PRN For Moderate Pain Metaxalone (Skelaxin) 800 Mg Tablet 800 MG PO 3-4 times/day PRN PRN back pain Naloxone HCl (Narcan) 4 Mg/Actuation [place] 4 MG NS ONCE PRN PRN For Opiate Reversal Ondansetron ODT (Ondansetron ODT) 8 Mg Tab.rapdis 8 MG PO QID PRN PRN For Nausea Zolpidem (Ambien) 5 Mg Tablet 10 MG PO HS@22 PRN PRN Insomnia General Time Seen by : 03:42 Chief Complaint Other (Sunburn) Hx Obtained From: Patient Arrived By: Ambulance Onset Occurred: 3 days ago Symptom Duration: Since onset Recent Healthcare: No recent hospitalization, Recent doctor visit Risk-Psychiatric Illness Suicide Risk Stratification RF Statements: No risk factors Past Medical History Past Medical History Notes: Patient admitted for mild lithium toxicity in November 07, 2015 Multiple ED visits (4 ED visits in past few weeks as of 10/2016) Past Medical History Bipolar (last admit to care center 05/2016 for SI, hypomania) On lithium. Negative Nuclear Cardiac Stress Test 2011 Anxiety Depression Reports: COPD, GERD, Hypertension Past Surgical History Cataract Surgery Smoking History Former Smoker Social History Former heroin user In process of - 10/19/16 Alcohol Use: In recovery Drug Use: THC Other Social History: Frequent ED visitor, Local resident Ambulatory Status Independent Review of Systems Sunburn to back of neck Psychiatric: Reports: Change mental status Complete sys rev & neg: except as marked. Physical Exam Initial Vital Signs Vital Signs (First) Date Time Temp Pulse Resp B/P Pulse Ox O2 Delivery O2 Flow Rate FiO2 12/01/16 03:46 36.9 93 20 187/121 98 Room Air Initial VS: Reviewed, Vital signs abnormal Head / Eyes: Atraumatic, Normocephalic, PERRL ENT: Mucous membranes moist, Conjunctiva normal, No scleral icterus Neck: Supple, Non-tender, Full range of motion Respiratory: Breath sounds normal, Clear to auscultation, No respiratory distress Cardiovascular: Regular rate & rhythm, Heart sounds normal, Intact distal pulses Extremities: Vascular intact, Neuro intact, No swelling, No tenderness General/Constitutional: Awake, Alert Neurologic: Speech NL, No motor deficits Psychiatric: Mood NL Skin: No rash, Warm Blistered peeling 2nd degree sunburn on posterior neck Interpretation & Diagnostics Lab Results Interpretation Test 12/01/16 04:00 Hold Urine Received (Received) Re-Eval/Medical Decision Med Decision/Clinical Course 61-year-old male who is disorganized and off his medications. He does not meet any correction criteria. He was given today's doses and encouraged to mushroom picker his prescriptions at [facility] and get back on them. Source of Hx: Old records Counseled Regarding: Diagnosis, Lab results, Need for follow-up, When/why to return to ED Discharge & Departure Impression: Primary Impression: Sunburn, second degree Additional Impression: Bipolar disorder, current episode hypomanic Disposition: Home Discharge Condition All VS Reviewed: Yes Condition: Stable Patient Instructions: Sunburn (ED) Additional Instructions: Silvadene cream apply 3 times a day to the burned area. Avoid sun exposure. Never use baby oil or butter to sun becerril with. Get your medications filled. Referrals: Deanna Galdamez DO (PCP) Scribe Attestation Portions of this note were transcribed by Lenin Maguire. I, Dr. March personally performed the history, physical exam and medical decision-making; I reviewed and confirmed the accuracy of the information in the transcribed note. copies to: Deanna Galdamez Howard L MD Dec 01, 2016 03:44 Lenin Maguire Dec 01, 2016 04:42
[2016-12-01 03:46] VITALS: BP 187/121; PULSE 93; RESP 20; O2SAT 98
[2016-12-01 04:56] VITALS: BP 145/89; PULSE 88; RESP 20; O2SAT 99
== END 2016-12-01 05:06 | disposition home or self-care (01) ==
LOC: SED 03:41
DX: L55.1 Sunburn of second degree (principal); F31.0 Bipolar disorder, current episode hypomanic; J44.9 Chronic obstructive pulmonary disease, unspecified; I10 Essential (primary) hypertension; K21.9 Gastro-esophageal reflux disease without esophagitis; F41.8 Other specified anxiety disorders; Z98.890 Other specified postprocedural states; Z87.891 Personal history of nicotine dependence